=== PATIENT | female | born 1995 | race African-American/Black ===

== ENCOUNTER 2023-01-22 19:41 | Emergency (ER) | payer OTHER, SELFPAY ==
[2023-01-22 21:07] VITALS: BP 147/104; PULSE 83; RESP 20; TEMP 36.5; O2SAT 98; BMI 34.0
[2023-01-22 22:04] LABS: MANUAL DIFF FLAG NO
[2023-01-22 22:06] LABS: Basophils Percent Auto 0.6 % (0-2); Eosinophils Absolute Auto 0.5 X10*3/uL (0.0-0.4); Eosinophils Percent Auto 9.1 % (0-4); Hemoglobin 11.4 g/dl (12.0-16.0); Lymphocytes Absolute Auto 0.9 X10*3/uL (1.2-4.9); Lymphocytes Percent Auto 17.5 % (20-40); Mean Corpuscular HGB Conc 33.5 g/dl (31.0-35.0); Mean Corpuscular Hemoglobin 29.8 pg (27.0-33.0); Mean Corpuscular Volume 88.8 fL (80.0-98.0); Mean Platelet Volume 9.1 fL (9.4-12.3); Monocytes Absolute Auto 0.7 X10*3/uL (0.1-1.2); Monocytes Percent Auto 14.9 % (2-11); Neutrophils Absolute Auto 2.9 x10*3/uL (2.0-8.3); Neutrophils Percent Auto 57.9 % (45-73); Platelet Count 280 X10*3/uL (160-400); Red Blood Count 3.83 X10*6/uL (4.20-5.50); Red Cell Distribution Width 13.7 % (11.0-16.0)
[2023-01-22 22:23] LABS: COVID-19 Test Negative (Negative); IDNOW Serial# 08D9AD1C; IDNOW Serial# BCCEAD1C; Influenza A Negative (Negative); Influenza B2 Negative (Negative)
[2023-01-22 22:31] LABS: Anion Gap 12 (12-20); Blood Urea Nitrogen 15 mg/dL (9-16); Calcium 8.9 mg/dL (8.4-10.2); Carbon Dioxide 25 mmol/L (22-29); Chloride 107 mmol/L (96-108); Estimated Glomerular Filt Rate > 60; Glucose Random 92 mg/dL (60-115); Potassium 3.6 mmol/L (3.3-5.1); Sodium 140 mmol/L (135-145)
--- NOTE | 2023-01-22 22:51 | ED.GENADULT ---
HPI - General Adult General Chief complaint: Abdominal Pain Stated complaint: Flu like symptoms Time Seen by Provider: 01/22/23 22:47 Source: patient Mode of arrival: ambulatory Limitations: no limitations History of Present Illness HPI narrative: Patient comes to the emergency room complaining of 3 days of nausea vomiting diarrhea, cough, congestion and sore throat. Patient denies fever chills, no shortness of breath, no chest pain, no abdominal pain or UTI symptoms. Related Data Allergies Allergy/AdvReac Type Severity Reaction Status Date / Time Seasonal Allergies Allergy Runny Nose Verified 01/22/23 22:44 Review of Systems Review of Systems: Constitutional : No Weight loss, No Fever, No Chills, No Night Sweats, No Fatigue, No Malaise ENT/Mouth : No Hearing loss, No Ear Pain, complaining of Nasal Congestion, No Sinus Pain, No Hoarseness, complaining of sore throat, No Rhinorrhea, No Swallowing Difficulty Eyes: No Eye Pain, No Swelling, No Redness, No Foreign Body, No Discharge, No Vision Changes Cardiovascular : No Chest Pain, No SOB, No Dyspnea on Exertion, No Orthopnea, No Edema, No Palpitations Respiratory : Complaining of Cough, No Sputum, No Wheezing, No Smoke Exposure, No Dyspnea Gastrointestinal : No Nausea, No Vomiting, No Diarrhea, No Constipation, No abdominal Pain, No Hematochezia, No Melena Genitourinary : no irregular bleeding, No Dysuria, No Urinary Frequency, No Hematuria, No Urinary Incontinence, No Urgency, No Flank Pain, No Urinary Flow Changes, No Hesitancy Musculoskeletal : No joint pain, No Myalgias, No Joint Swelling Skin : No Skin Lesions, No rash Neuro : No Weakness, No Numbness, No Paresthesias, No Loss of Consciousness, No Dizziness, No Headache Psych : No Anxiety/Panic, No Depression, No SI/HI/AH/VH, No Social Issues, Heme/Lymph: No Bruising, No Bleeding,No Lymphadenopathy Endocrine : No Polyuria, No Polydipsia, No Temperature Intolerance [facility] Past Medical History Medical History (Updated 01/22/23 @ 22:54 by Jeni Castro MD) Asthma Physical Exam ED Vital Signs: Vital Signs - 24 hr 01/22/23 21:07 Temperature 97.7 F Pulse Rate 83 Respiratory Rate 20 Blood Pressure 147/104 H Pulse Oximetry 98 Oxygen Delivery Method Room Air BMI result Body Mass Index 34.0 Const Other: Appearance: Alert. Oriented X3. No acute distress. Eyes: Pupils equal, round and reactive to light. ENT: Pharynx mildly erythematous, no abscess is visualized Neck: Normal inspection. Neck supple. No lymph nodes noted. No crepitus CVS: Normal heart rate and rhythm. Pulses normal. Normal S1 and S2 Respiratory: No respiratory distress. Breath sounds normal. No Wheezing. No rales Abdomen: Soft and nontender. No rigidity. No distention. Skin: Skin warm and dry. Normal skin color. Normal skin turgor. Extremities: No lower extremity edema. No Lacerations. No Rash Neuro: Oriented X 3. No motor deficit. No sensory deficit. Moving all extremities. No slurred speech. CN 2 through 12 grossly intact Psych: calm, cooperative, normal affect Medical Decision Making Medical Decision Making MDM Narrative: -I discussed the physical exam and labs with the patient, no acute abnormalities. Patient has mildly erythematous oropharynx, likely a viral syndrome. -patient was given 1 dose of dexamethasone p.o. and viscous lidocaine for comfort. Differential Diagnosis Differential Diagnoses: The differential diagnosis associated with the presentation includes (Gastroenteritis, viral syndrome, COVID, influenza) Lab Data 01/22/23 21:59 01/22/23 21:59 Labs: Lab Results 01/22/23 01/22/23 01/22/23 Range/Units 21:59 21:59 21:59 WBC 5.0 (4.8-10.8) X10*3/uL RBC 3.83 L (4.20-5.50) X10*6/uL Hgb 11.4 L (12.0-16.0) g/dl Hct 34.0 L (37.0-47.0) % MCV 88.8 (80.0-98.0) fL MCH 29.8 (27.0-33.0) pg MCHC 33.5 (31.0-35.0) g/dl RDW 13.7 (11.0-16.0) % Plt Count 280 (160-400) X10*3/uL MPV 9.1 L (9.4-12.3) fL Immature Gran % (Auto) 0.0 (0.0-0.4) % Neut % (Auto) 57.9 (45-73) % Lymph % (Auto) 17.5 L (20-40) % [place] % (Auto) 14.9 H (2-11) % Eos % (Auto) 9.1 H (0-4) % Baso % (Auto) 0.6 (0-2) % Lymph # (Auto) 0.9 L (1.2-4.9) X10*3/uL [place] # (Auto) 0.7 (0.1-1.2) X10*3/uL Eos # (Auto) 0.5 H (0.0-0.4) X10*3/uL Baso # (Auto) 0.0 (0.0-0.2) X10*3/uL Abs Immat Gran (auto) 0.00 (0.00-0.03) X10*3/uL Absolute Neuts (auto) 2.9 (2.0-8.3) x10*3/uL Absolute Nucleated RBC 0.000 (0.0-0.012) X10*3/uL Nucleated RBC % (auto) 0.0 (0.0-0.2) /100WBC Sodium (135-145) mmol/L Potassium (3.3-5.1) mmol/L Chloride (96-108) mmol/L Carbon Dioxide (22-29) mmol/L Anion Gap (12-20) BUN (9-16) mg/dL Creatinine (0.5-1.4) mg/dL Estim Creat Clear Calc Estimated GFR Random Glucose (60-115) mg/dL Calcium (8.4-10.2) mg/dL COVID-19 (SHASHI) Negative (Negative) COVID-19 Clin Com See Note Influenza Type A (KAITLYNN) Negative (Negative) Influenza Type B (KAITLYNN) Negative (Negative) Influenza A & B Note See Note 01/22/23 Range/Units 21:59 WBC (4.8-10.8) X10*3/uL RBC (4.20-5.50) X10*6/uL Hgb (12.0-16.0) g/dl Hct (37.0-47.0) % MCV (80.0-98.0) fL MCH (27.0-33.0) pg MCHC (31.0-35.0) g/dl RDW (11.0-16.0) % Plt Count (160-400) X10*3/uL MPV (9.4-12.3) fL Immature Gran % (Auto) (0.0-0.4) % Neut % (Auto) (45-73) % Lymph % (Auto) (20-40) % [place] % (Auto) (2-11) % Eos % (Auto) (0-4) % Baso % (Auto) (0-2) % Lymph # (Auto) (1.2-4.9) X10*3/uL [place] # (Auto) (0.1-1.2) X10*3/uL Eos # (Auto) (0.0-0.4) X10*3/uL Baso # (Auto) (0.0-0.2) X10*3/uL Abs Immat Gran (auto) (0.00-0.03) X10*3/uL Absolute Neuts (auto) (2.0-8.3) x10*3/uL Absolute Nucleated RBC (0.0-0.012) X10*3/uL Nucleated RBC % (auto) (0.0-0.2) /100WBC Sodium 140 (135-145) mmol/L Potassium 3.6 (3.3-5.1) mmol/L Chloride 107 (96-108) mmol/L Carbon Dioxide 25 (22-29) mmol/L Anion Gap 12 (12-20) BUN 15 (9-16) mg/dL Creatinine 0.67 (0.5-1.4) mg/dL Estim Creat Clear Calc 165.0 Estimated GFR > 60 Random Glucose 92 (60-115) mg/dL Calcium 8.9 (8.4-10.2) mg/dL COVID-19 (SHASHI) (Negative) COVID-19 Clin Com Influenza Type A (KAITLYNN) (Negative) Influenza Type B (KAITLYNN) (Negative) Influenza A & B Note Discharge Plan Discharge Clinical Impression: Acute viral syndrome Patient Disposition: Home, Self-Care Instructions: Viral Syndrome (ED) Additional Instructions: Please follow-up with your primary care physician tomorrow. If you have any worsening or new symptoms, please return to the emergency room or call 911 Stand Alone Forms: Work/School Release
--- NOTE | 2023-01-22 23:00 | PC.NURSE ---
pt c/o sore thrt, diarrhea, body aches, loss of sense of taste that began 3 days ago aox4 no apparent distress, resting quietly
[2023-01-22] MEDS: dexAMETHasone sod phosphate 4 MG/ML VIAL 6 MG IVPUSH (23:19)
[2023-01-22] MEDS: Lidocaine HCl Viscous 2 % 15 ML SOLUTION MUCOUS MEM (23:20)
[2023-01-22 23:22] VITALS: BP 151/93; PULSE 95; RESP 16; TEMP 37.2; O2SAT 98
== END 2023-01-22 23:28 | disposition home or self-care (01) ==
PROVIDERS: Physician Assistant; Emergency Provider Emergency Medicine
DX: B34.9 Viral infection, unspecified (principal); R11.2 Nausea with vomiting, unspecified; Z20.822 Contact with and (suspected) exposure to COVID-19
CPT/HCPCS: 36415; 80048; 85025; 87502; 87635; 99283; J1100

== ENCOUNTER 2023-01-25 23:26 | Emergency (ER) | payer OTHER, SELFPAY ==
[2023-01-26 00:44] VITALS: BP 130/94; PULSE 76; RESP 17; TEMP 36.4; O2SAT 98; BMI 31.3
[2023-01-26 01:06] LABS: Hematocrit 35.3 % (37.0-47.0); Mean Corpuscular Hemoglobin 29.5 pg (27.0-33.0); Mean Corpuscular Volume 86.7 fL (80.0-98.0); Mean Platelet Volume 9.2 fL (9.4-12.3); Platelet Count 315 X10*3/uL (160-400); Red Blood Count 4.07 X10*6/uL (4.20-5.50); Red Cell Distribution Width 13.5 % (11.0-16.0); White Blood Count 6.8 X10*3/uL (4.8-10.8)
[2023-01-26 01:08] LABS: Appearance Urine Cloudy; Color Urine Yellow; Glucose Urine UA Negative (Negative); Leukocyte Esterase Urine Moderate (2+) (Negative); Nitrite Urine Negative (Negative); PH 5.5 (5.0-9.0); Specific Gravity - Urine >= 1.030 (1.005-1.025); UMIC TRIGGER UACC YES; Urine Blood Trace (Negative); Urine Ketones Negative (Negative); Urine Protein Trace mg/dL (Neg-Trace)
[2023-01-26 01:13] LABS: Bacteria Urine 1+ (None Seen); Hyaline Casts Urine 0-2 /LPF (0-2); Squamous Epithelial Cell Urine >20 /HPF (0-2); UACC Culture Trigger YES
[2023-01-26 01:28] LABS: Alanine Aminotransferase 23 U/L (0-31); Alkaline Phosphatase 59 U/L (39-117); Anion Gap 11 (12-20); Aspartate Amino Transferase 26 U/L (5-31); Bilirubin Total 0.3 mg/dL (0.0-1.0); Blood Urea Nitrogen 16 mg/dL (9-16); Calcium 9.3 mg/dL (8.4-10.2); Carbon Dioxide 28 mmol/L (22-29); Chloride 107 mmol/L (96-108); Creatinine Clr Calc Pharmacy 146.2; Estimated Glomerular Filt Rate > 60; Glucose Random 100 mg/dL (60-115); Potassium 3.9 mmol/L (3.3-5.1); Sodium 142 mmol/L (135-145); Total Protein 6.8 g/dL (6.5-8.0)
[2023-01-26 04:16] VITALS: BP 128/87; PULSE 18; RESP 17; TEMP 36.2; O2SAT 98
--- NOTE | 2023-01-26 04:18 | ED_ITS ---
HPI - General Adult General Chief complaint: General Medical Stated complaint: Earache/Vomiting/Diarrhea Time Seen by Provider: 01/26/23 04:17 Source: patient Mode of arrival: ambulatory Limitations: no limitations History of Present Illness HPI narrative: Patient with multiple complaints for last 1 week feel congested earache body aches nausea vomiting and diarrhea was seen here on 01/22 COVID/flu was negative comes back as still patient feel nauseated no back pain no urinary symptoms Related Data Previous Rx's Medication Instructions Recorded cefuroxime axetil 250 mg tablet 250 mg PO BID 7 days #14 tabs 01/26/23 ondansetron 4 mg disintegrating 4 mg PO Q6-8H PRN nausea and 01/26/23 tablet vomiting #10 tabs Allergies Allergy/AdvReac Type Severity Reaction Status Date / Time Seasonal Allergies Allergy Runny Nose Verified 01/22/23 22:44 Review of Systems Review of Systems: Yes all other systems are reviewed and are negative PMFSH Past Medical History Medical History Asthma Social History Social History Smoked in Last 30 Days: No Use of substances other than those prescribed or required for medical reasons: No Advance Directives: No Advance Directives Information Provided: No Physical Exam ED Vital Signs: Vital Signs - 24 hr 01/26/23 00:44 01/26/23 04:16 Temperature 97.5 F 97.1 F Pulse Rate 76 18 L Respiratory Rate 17 17 Blood Pressure 130/94 H 128/87 Pulse Oximetry 98 98 Oxygen Delivery Method Room Air Room Air BMI result Body Mass Index 31.3 Appearance: Alert. Oriented X3. No acute distress. Eyes: No pallor or icterus ENT: Pharynx normal. Oral Mucosa moist tympanic membrane intact and normal Neck: Normal inspection. Neck supple. CVS: Normal heart rate and rhythm. Pulses normal. Respiratory: No respiratory distress. Equal air entry bilateral, no wheezing/rales/rhonchi Abdomen: Soft and nontender. Bowel sounds are present, Skin: Skin warm and dry. Normal skin color. Normal skin turgor. Extremities: No lower extremity edema. No calf tenderness Neuro: Oriented X 3. No motor deficit. Medications Administered Discontinued Medications Generic Name Dose Route Start Last Admin Trade Name Freq PRN Reason Stop Dose Admin Cefuroxime Axetil 500 mg 01/26/23 04:24 01/26/23 04:44 Cefuroxime Axetil 500 Mg Tablet PO 01/26/23 04:25 500 mg ONCE ONE Administration Ondansetron HCl 4 mg 01/26/23 04:24 01/26/23 04:44 Ondansetron Odt 4 Mg Tab.Rapdis TRANSLINGU 01/26/23 04:25 4 mg ONCE ONE Administration Medical Decision Making Medical Decision Making MDM Narrative: Patient with UTI with nausea vomiting discharge patient home on Ceftin and Zofran lab workup stable Lab Data [facility] Lab Attestation statement: I reviewed the patient's lab results. 01/26/23 00:57 01/26/23 00:57 Labs: Lab Results 01/26/23 01/26/23 01/26/23 Range/Units 00:57 00:57 00:57 WBC 6.8 (4.8-10.8) X10*3/uL RBC 4.07 L (4.20-5.50) X10*6/uL Hgb 12.0 (12.0-16.0) g/dl Hct 35.3 L (37.0-47.0) % MCV 86.7 (80.0-98.0) fL MCH 29.5 (27.0-33.0) pg MCHC 34.0 (31.0-35.0) g/dl RDW 13.5 (11.0-16.0) % Plt Count 315 (160-400) X10*3/uL MPV 9.2 L (9.4-12.3) fL Absolute Nucleated RBC 0.000 (0.0-0.012) X10*3/uL Nucleated RBC % (auto) 0.0 (0.0-0.2) /100WBC Sodium 142 (135-145) mmol/L Potassium 3.9 (3.3-5.1) mmol/L Chloride 107 (96-108) mmol/L Carbon Dioxide 28 (22-29) mmol/L Anion Gap 11 L (12-20) BUN 16 (9-16) mg/dL Creatinine 0.68 (0.5-1.4) mg/dL Estim Creat Clear Calc 146.2 Estimated GFR > 60 Random Glucose 100 (60-115) mg/dL Calcium 9.3 (8.4-10.2) mg/dL Total Bilirubin 0.3 (0.0-1.0) mg/dL AST 26 (5-31) U/L ALT 23 (0-31) U/L Alkaline Phosphatase 59 (39-117) U/L Total Protein 6.8 (6.5-8.0) g/dL Albumin 4.0 (3.5-5.0) g/dL Urine Color Yellow Urine Appearance Cloudy Urine pH 5.5 (5.0-9.0) Ur Specific [place] >= 1.030 H (1.005-1.025) Urine Protein Trace (Neg-Trace) mg/dL Urine Glucose (UA) Negative (Negative) mg/dL Urine Ketones Negative (Negative) mg/dL Urine Blood Trace H (Negative) Urine Nitrite Negative (Negative) Ur Leukocyte Esterase Moderate (2+) H (Negative) Urine RBC 3-5 H (0-2) /HPF Urine WBC 11-20 H (0-5) /HPF Ur Squamous Epith Cells >20 (0-2) /HPF Urine Bacteria 1+ (None Seen) Hyaline Casts 0-2 (0-2) /LPF Urine Test (NEGATIVE) 01/26/23 Range/Units 00:57 WBC (4.8-10.8) X10*3/uL RBC (4.20-5.50) X10*6/uL Hgb (12.0-16.0) g/dl Hct (37.0-47.0) % MCV (80.0-98.0) fL MCH (27.0-33.0) pg MCHC (31.0-35.0) g/dl RDW (11.0-16.0) % Plt Count (160-400) X10*3/uL MPV (9.4-12.3) fL Absolute Nucleated RBC (0.0-0.012) X10*3/uL Nucleated RBC % (auto) (0.0-0.2) /100WBC Sodium (135-145) mmol/L Potassium (3.3-5.1) mmol/L Chloride (96-108) mmol/L Carbon Dioxide (22-29) mmol/L Anion Gap (12-20) BUN (9-16) mg/dL Creatinine (0.5-1.4) mg/dL Estim Creat Clear Calc Estimated GFR Random Glucose (60-115) mg/dL Calcium (8.4-10.2) mg/dL Total Bilirubin (0.0-1.0) mg/dL AST (5-31) U/L ALT (0-31) U/L Alkaline Phosphatase (39-117) U/L Total Protein (6.5-8.0) g/dL Albumin (3.5-5.0) g/dL Urine Color Urine Appearance Urine pH (5.0-9.0) Ur Specific [place] (1.005-1.025) Urine Protein (Neg-Trace) mg/dL Urine Glucose (UA) (Negative) mg/dL Urine Ketones (Negative) mg/dL Urine Blood (Negative) Urine Nitrite (Negative) Ur Leukocyte Esterase (Negative) Urine RBC (0-2) /HPF Urine WBC (0-5) /HPF Ur Squamous Epith Cells (0-2) /HPF Urine Bacteria (None Seen) Hyaline Casts (0-2) /LPF Urine Test NEGATIVE (NEGATIVE) Discharge Plan Discharge Clinical Impression: UTI (urinary tract infection) Patient Disposition: Home, Self-Care Instructions: Urinary Tract Infection in Women (ED) Additional Instructions: Drink plenty of fluids Antibiotic as prescribed Medicine for nausea Follow-up with PCP if not better Prescriptions: New cefuroxime axetil 250 mg tablet 250 mg PO BID 7 Days Qty: 14 0RF ondansetron 4 mg tablet,disintegrating 4 mg PO Q6-8H PRN (Reason: nausea and vomiting) Qty: 10 0RF
[2023-01-26 04:28] LABS: UPreg QC Valid YES; Urine Pregnancy NEGATIVE (NEGATIVE)
[2023-01-26] MEDS: Ondansetron ODT 4 MG TAB.RAPDIS TRANSLINGU (04:44)
--- NOTE | 2023-01-26 04:55 | PC.NURSE ---
pt denies any sob or chest pain, medicated per Mar, Reviewed discharge instructions with pt, pt verbalized understanding.
== END 2023-01-26 05:04 | disposition home or self-care (01) ==
PROVIDERS: Emergency Provider Internal Medicine
DX: N39.0 Urinary tract infection, site not specified (principal); M79.10 Myalgia, unspecified site; H92.03 Otalgia, bilateral; Z79.899 Other long term (current) drug therapy
CPT/HCPCS: 36415; 80053; 81001; 81025; 85027; 87086; 99283; 99284

== ENCOUNTER 2023-03-16 12:41 | Emergency (ER) | payer OTHER, SELFPAY ==
--- NOTE | ~2023-03-16 | XR_ITS ---
EXAMINATION: XR KNEE, LEFT CLINICAL INFORMATION: Pain. Fall. COMPARISON: None available. TECHNIQUE: Four views of the left knee. FINDINGS: Bones and soft tissues are normal. No fracture or joint effusion. Alignment is anatomic. Joint spaces are well maintained. No abnormal soft tissue calcification. XR/XR knee LT 3V IMPRESSION: Normal left knee.
[2023-03-16 13:28] VITALS: BP 135/93; PULSE 75; RESP 16; TEMP 36.4; O2SAT 100; BMI 36.6
--- NOTE | 2023-03-16 13:29 | ED.GENADULT ---
HPI - General Adult General Chief complaint: Fall Stated complaint: work injury Time Seen by Provider: 03/16/23 14:24 Source: patient and RN notes reviewed Mode of arrival: ambulatory Limitations: no limitations History of Present Illness HPI narrative: This is a 27-year-old female presenting to the emergency department with complaints of left knee pain since today. 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 Patient reports that she has been able to partially bear weight on her left leg secondary to pain. She has a history of left knee problems in the past. She states that she was told that she would need surgery in her left knee due to a ligamentous tear however did not follow through with the surgery as she was too nervous about it. Patient denies any numbness, tingling, or weakness. Denies taking any medications at home to treat her current symptoms. Denies hitting her head or lost consciousness during this fall. No other complaints or concerns at this time. MD complaint: Left knee pain Onset (ago): day(s) Location: lower extremity Radiation: non-radiation Quality: aching Pain Consistency: constant Relieving factors: none Exacerbating factors: none Associated symptoms: denies other symptoms Treatments prior to arrival: none Related Data Previous Rx's Medication Instructions Recorded cefuroxime axetil 250 mg tablet 250 mg PO BID 7 days #14 tabs 01/26/23 ondansetron 4 mg disintegrating 4 mg PO Q6-8H PRN nausea and 01/26/23 tablet vomiting #10 tabs ibuprofen 600 mg tablet 600 mg PO Q6H PRN pain #45 tabs 03/16/23 Allergies Allergy/AdvReac Type Severity Reaction Status Date / Time Seasonal Allergies Allergy Runny Nose Verified 03/16/23 13:31 Review of Systems Review of Systems: Constitutional: No Weight loss, No Fever, No Chills ENT/Mouth: No Ear Pain, No Nasal Congestion, No Sinus Pain, No Hoarseness, No sore throat, No Rhinorrhea, No Swallowing Difficulty Cardiovascular: No Chest Pain, No SOB Respiratory: No Cough, No Sputum, No Wheezing Gastrointestinal: No Nausea, No Vomiting, No Diarrhea, No Constipation, No Abdominal pain Genitourinary: No Dysuria, No Urinary Frequency, No Hematuria, No Urinary Incontinence/retention, No Urgency, No Flank Pain Musculoskeletal: No joint pain, No Myalgias, No Joint Swelling Skin: No Skin Lesions, No rash Neuro: No Weakness, No Numbness, No Paresthesias PMF Past Medical History Medical History Asthma Social History Social History Advance Directives: No Advance Directives Information Provided: Yes Physical Exam ED Vital Signs: Vital Signs - 24 hr 03/16/23 13:28 03/16/23 14:24 Temperature 97.5 F Pulse Rate 75 67 Respiratory Rate 16 16 Blood Pressure 135/93 H 103/77 Pulse Oximetry 100 Oxygen Delivery Method Room Air Room Air BMI result Body Mass Index 36.6 Const Other: General: Awake, alert, and oriented X3. No acute distress. HEENT: Normal inspection CVS: Normal heart rate and rhythm. Pulses normal. Respiratory: No respiratory distress Skin: Warm, dry, no rashes noted to exposed skin. Normal skin color. Normal skin turgor. Extremities: Left knee with tenderness to palpation along the patella, able to flex and extend the left knee without difficulty. Tenderness with varus strain. No calf tenderness. Neuro: Oriented X 3. No motor deficit. No sensory deficit. Course Course Course Narrative: RME- 27 year old female presents for evaluation of left knee pain after a slip and fall at work. X-ray ordeed Medical Decision Making Medical Decision Making MDM Narrative: 27-year-old female presenting to emergency department for evaluation of left knee pain after slip and fall at work. Vital signs stable, left knee x-ray obtained without any acute findings. Patient has good range of motion of the knee, distal sensation circulation intact. Patient's left knee placed in Michael wrap and advise to ice, elevate, and use Michael wrap as needed. Given orthopedic follow-up as needed. Patient understands and agrees with plan. Patient stable for discharge. Differential Diagnosis Differential Diagnoses: The differential diagnosis associated with the presentation includes Left knee contusion, patellar fracture, knee sprain, strain Radiology Impression Discussion of test interpretation with radiology: I have reviewed the radiologist's reading. Radiologist Impression: EXAMINATION: XR KNEE, LEFT CLINICAL INFORMATION: Pain. Fall.? COMPARISON: None available.? TECHNIQUE: Four views of the left knee. FINDINGS: Bones and soft tissues are normal. No fracture or joint effusion. Alignment is anatomic. Joint spaces are well maintained. No abnormal soft tissue calcification.? XR/XR knee LT 3V IMPRESSION: Normal left knee. ? Dictated By: Kourtney Gaines MD Signed By: <Electronically signed by Kourtney Gaines MD in OV> 03/16/23 1422 DD/ 1400 TD/TT:? Foreign Legal Consultant: ADEBAYO Discharge Plan Discharge Clinical Impression: Contusion of knee Patient Disposition: Home, Self-Care Instructions: Knee Pain (ED) Additional Instructions: Please rest, ice, use Michael wrap for your knee pain. Take ibuprofen as directed as needed for pain. There were no fractures seen on your x-rays done today. Please follow-up with orthopedics as they may need to follow you for further treatment evaluation. If any new or worsening symptoms occur please return for re-evaluation. Prescriptions: New ibuprofen 600 mg tablet 600 mg PO Q6H PRN (Reason: pain) Qty: 45 0RF No Action cefuroxime axetil 250 mg tablet 250 mg PO BID 7 Days Qty: 14 0RF ondansetron 4 mg tablet,disintegrating 4 mg PO Q6-8H PRN (Reason: nausea and vomiting) Qty: 10 0RF Referrals: [facility] [Provider Group] Stand Alone Forms: Work/School Release Interventions: ED Discharge Assessment Last Done: 03/16/23 15:40 Discharge Date/Time: 03/16/23 15:40
[2023-03-16 14:24] VITALS: BP 103/77; PULSE 67; RESP 16
== END 2023-03-16 15:40 | disposition home or self-care (01) ==
PROVIDERS: Emergency Provider Emergency Medicine
DX: S80.02XA Contusion of left knee, initial encounter (principal); W01.0XXA Fall on same level from slipping, tripping and stumbling without subsequent striking against object, initial encounter; Y93.9 Activity, unspecified; Y92.9 Unspecified place or not applicable; Y99.9 Unspecified external cause status
CPT/HCPCS: 73562; 99283

== ENCOUNTER 2023-03-28 16:21 | Emergency (ER) | payer MEDICAID, SELFPAY ==
[2023-03-28 16:44] VITALS: BP 130/85; PULSE 96; RESP 16; TEMP 36; O2SAT 99; BMI 36.6
--- NOTE | 2023-03-28 16:47 | ED.GENADULT ---
HPI - General Adult General Chief complaint: Extremity Injury, Lower Stated complaint: fall/right knee and leg injury Time Seen by Provider: 03/28/23 22:14 Source: patient Mode of arrival: ambulatory Limitations: no limitations History of Present Illness HPI narrative: 27-year-old female came in for evaluation of right knee/right ankle pain patient is fell down twisting her right knee heard a pop in the right knee, patient unable to straighten her right knee walk with limping, no deformity, slight swelling of the right knee and right ankle. No head or neck pain or injury. Denies CP, SOB, abdominal pain. No history of previous right knee injury. Related Data Previous Rx's Medication Instructions Recorded cefuroxime axetil 250 mg tablet 250 mg PO BID 7 days #14 tabs 01/26/23 ondansetron 4 mg disintegrating 4 mg PO Q6-8H PRN nausea and 01/26/23 tablet vomiting #10 tabs ibuprofen 600 mg tablet 600 mg PO Q6H PRN pain #45 tabs 03/16/23 ibuprofen 800 mg tablet 800 mg PO Q8H PRN pain #20 tabs 03/28/23 Allergies Allergy/AdvReac Type Severity Reaction Status Date / Time Seasonal Allergies Allergy Runny Nose Verified 03/28/23 16:44 Review of Systems Review of Systems: All other systems are reviewed and are negative Constitutional: Reports as per HPI and Reports no additional constitutional complaints Eyes: Reports as per HPI and Reports no additional eye complaints Reports system reviewed and no additional complaints, except as documented Cardiovascular: Reports as per HPI and Reports no additional cardiovascular complaints Respiratory: Reports as per HPI and Reports no additional respiratory complaints Gastrointestinal: Reports as per HPI and Reports no additional gastrointestinal complaints Genitourinary: Reports no additional female genitourinary complaints Musculoskeletal: Reports no additional musculoskeletal complaints Skin/Breast: Reports system reviewed and no additional complaints, except as docu Psychiatric: Reports no additional psychiatric complaints Endocrine: Reports no additional endocrine complaints Hematologic/Lymphatic: Reports no additional hematologic/lymphatic complaints Allergic/Immunologic: Reports no additional allergic/immunologic complaints Reports system reviewed and no additional complaints, except as documented and Reports Abnormal speech present [facility] Past Medical History Medical History Asthma Social History Social History Advance Directives: No Advance Directives Information Provided: No Physical Exam ED Vital Signs: Vital Signs - 24 hr 03/28/23 16:44 Temperature 96.8 F Pulse Rate 96 Respiratory Rate 16 Blood Pressure 130/85 Pulse Oximetry 99 Oxygen Delivery Method Room Air BMI result Body Mass Index 36.6 Vital signs have been reviewed as appeared to be correct. Blood pressure normal. Heart rate normal. Respiration rate normal. Temperature normal. Oxygen saturation normal. Appearance: Alert. Oriented X3. No acute distress. Head: Normal external exam. Normocephalic. Atraumatic. No Pritchard signs noted. No raccoon eyes noted Eyes: PERRLA. EOMI. Conjunctiva and sclera normal. Eyelids normal. ENT: TM's Normal. Pharynx normal. Uvula midline. Moist mucous membranes. No trismus noted. No drooling noted. No muffled voice noted. Neck: Normal inspection. Neck supple. FROM. No adenopathy. Thyroid Normal. No meningeal signs. No neck mass noted. CVS: Normal heart rate and rhythm. Heart sound normal. No murmurs noted. Pulses normal throughout. Respiratory: No respiratory distress. Painless inspiration. Breath sounds normal. No wheezes/rales/rhonchi noted. Chest nontender. No accessory muscle usage noted or decreased air movement noted. Abdomen: Soft and nontender. Bowel sounds normal in all 4 quadrants. No distention noted. No organomegaly noted. No visible injury noted. Back: No CVA tenderness. Full range of motion noted. Skin: Skin warm and dry. Normal skin color. Normal skin turgor. No rashes/lesions/lacerations noted. Extremities: Right knee slight swelling, no deformity, full range of passive motion, neurovascularly intact. Neuro: Oriented X 3. Cranial nerve exam: II-XII are grossly intact No motor deficit. No sensory deficit. Reflexes normal. Course Course Course Narrative: RME: 27 [place]ofl[place] prieto presents to the ED for right knee and leg pain after falling. patient states hearing her right knee pain popping sound. patient denies hitting head or loss of concsisoiness. xrays ordered Reevaluation(s) Reevaluation #1: 27-year-old female with right knee contusion after twisting it, no fracture on the x-ray, neurovascularly intact, recommended to apply ice and knee immobilizer and follow-up with orthopedic Time: 22:43 Medications Administered Discontinued Medications Generic Name Dose Route Start Last Admin Trade Name Freq PRN Reason Stop Dose Admin Ibuprofen 800 mg 03/28/23 22:39 03/28/23 22:44 Ibuprofen 800 Mg Tablet PO 03/28/23 22:40 800 mg ONCE ONE Administration Medical Decision Making Differential Diagnosis Differential Diagnoses: The differential diagnosis associated with the presentation includes (Knee fracture, ligamentous injury, leg fracture, soft tissue contusion.) Admission/Observation Consideration of admission/observation: Escalation of care including admission/observation considered Lab Data MDM Lab Attestation statement: I reviewed the patient's lab results. Independent Interpretation I performed an independent interpretation of an: Plain X-Ray (Right knee/right leg: No acute fracture dislocation.) Radiology Impression Discussion of test interpretation with radiology: I have reviewed the radiologist's reading. Discharge Plan Discharge Clinical Impression: Ankle sprain and strain, Contusion of knee, right Patient Disposition: Home, Self-Care Instructions: Contusion in Adults (ED) Prescriptions: New ibuprofen 800 mg tablet 800 mg PO Q8H PRN (Reason: pain) Qty: 20 0RF No Action cefuroxime axetil 250 mg tablet 250 mg PO BID 7 Days Qty: 14 0RF ondansetron 4 mg tablet,disintegrating 4 mg PO Q6-8H PRN (Reason: nausea and vomiting) Qty: 10 0RF ibuprofen 600 mg tablet 600 mg PO Q6H PRN (Reason: pain) Qty: 45 0RF Referrals: Fareed Humphries MD [Physician] - Stand Alone Forms: Work/School Release Interventions: ED Discharge Assessment Last Done: 03/28/23 23:07 Discharge Date/Time: 03/28/23 23:08
== END 2023-03-28 23:08 | disposition home or self-care (01) ==
PROVIDERS: Emergency Provider Emergency Medicine
DX: S93.401A Sprain of unspecified ligament of right ankle, initial encounter (principal); S96.911A Strain of unspecified muscle and tendon at ankle and foot level, right foot, initial encounter; X58.XXXA Exposure to other specified factors, initial encounter; Y93.89 Activity, other specified; Y92.9 Unspecified place or not applicable; Y99.9 Unspecified external cause status; M25.561 Pain in right knee
CPT/HCPCS: 73564; 73590; 99283

== ENCOUNTER 2023-05-11 08:01 | Outpatient (AMB) | payer MEDICAID, SELFPAY ==
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
[2023-05-11 08:39] VITALS: BMI 36.6
== END 2023-05-11 09:19 | disposition home or self-care (01) ==
PROVIDERS: Visit Provider Physician Assistant
DX: M94.261 Chondromalacia, right knee (principal); S93.401A Sprain of unspecified ligament of right ankle, initial encounter
CPT/HCPCS: 99203

== ENCOUNTER → 2023-05-11 08:01 | Outpatient (BNVA) | payer OTHER, SELFPAY | PROVIDERS: Visit Provider Physician Assistant | DX: S93.401A Sprain of unspecified ligament of right ankle, initial encounter (principal); M94.261 Chondromalacia, right knee | CPT/HCPCS: 99202; 99203 ==

== ENCOUNTER 2023-06-07 17:46 | Emergency (ER) | payer OTHER, SELFPAY ==
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
[2023-06-07 18:36] VITALS: BP 148/96; PULSE 78; RESP 20; O2SAT 99; BMI 35.4
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
== END 2023-06-07 21:45 | disposition home or self-care (01) ==
PROVIDERS: Emergency Provider Emergency Medicine
DX: M25.561 Pain in right knee (principal); R26.2 Difficulty in walking, not elsewhere classified
CPT/HCPCS: 73564; 99281; 99283

== ENCOUNTER 2023-06-10 20:07 | Emergency (ER) | payer OTHER, SELFPAY ==
[2023-06-10 20:56] VITALS: BP 147/93; PULSE 82; RESP 18; TEMP 36; O2SAT 97; BMI 35.4
== END 2023-06-10 23:01 | disposition left against medical advice (07) ==
LOC: HO.ED 22:52
PROVIDERS: Emergency Provider Emergency Medicine
DX: M25.561 Pain in right knee (principal)
CPT/HCPCS: 99281

== ENCOUNTER 2024-07-10 11:29 | Emergency (ER) | payer OTHER, SELFPAY ==
--- NOTE | ~2024-07-10 | XR_ITS ---
EXAMINATION: XR LUMBAR SPINE XR SACRUM AND COCCYX CLINICAL INFORMATION: Pain. COMPARISON: None available. TECHNIQUE: 3 view lumbar spine and 3 view sacrum and coccyx. FINDINGS: LUMBAR SPINE: There are 5 nonrib-bearing lumbar vertebra. No acute fracture, spondylolisthesis, or spondylolysis is identified. Pedicles appear intact. There is mild narrowing of the L5-S1 disc space. There is some mild sclerosis of the right sacroiliac joint. SACRUM AND COCCYX: No acute fracture or dislocation is evident. Hip joint spaces appear maintained. No diastasis of the pelvis identified. There is some mild sclerosis seen involving the right sacroiliac joint involving the sacral and iliac surfaces. No definite effusion or widening of sacroiliac joint is noted. XR/XR sacrum coccyx min 2V IMPRESSION: Mild degenerative change L5-S1 without significant bony abnormality appreciated. No evidence of acute fracture of the sacrum or coccyx. Some degenerative sclerosis involving the right sacroiliac joint. Electronically signed by: Edmar Dozier MD 07/10/2024 01:49 PM EDT
--- NOTE | ~2024-07-10 | XR_ITS ---
EXAMINATION: XR LUMBAR SPINE XR SACRUM AND COCCYX CLINICAL INFORMATION: Pain. COMPARISON: None available. TECHNIQUE: 3 view lumbar spine and 3 view sacrum and coccyx. FINDINGS: LUMBAR SPINE: There are 5 nonrib-bearing lumbar vertebra. No acute fracture, spondylolisthesis, or spondylolysis is identified. Pedicles appear intact. There is mild narrowing of the L5-S1 disc space. There is some mild sclerosis of the right sacroiliac joint. SACRUM AND COCCYX: No acute fracture or dislocation is evident. Hip joint spaces appear maintained. No diastasis of the pelvis identified. There is some mild sclerosis seen involving the right sacroiliac joint involving the sacral and iliac surfaces. No definite effusion or widening of sacroiliac joint is noted. XR/XR lumbar spine 2-3V IMPRESSION: Mild degenerative change L5-S1 without significant bony abnormality appreciated. No evidence of acute fracture of the sacrum or coccyx. Some degenerative sclerosis involving the right sacroiliac joint. Electronically signed by: Edmar Dozier MD 07/10/2024 01:49 PM EDT
[2024-07-10 11:48] VITALS: BP 148/93; PULSE 98; RESP 20; TEMP 37.2; O2SAT 98; BMI 31.9
--- NOTE | 2024-07-10 11:50 | ED.BACK ---
HPI - Back Pain/Injury General Chief Complaint: Back Pain/Injury Stated Complaint: Back pain Time Seen by Provider: 07/10/24 13:59 Source: patient Mode of arrival: ambulatory Limitations: no limitations History of Present Illness ED Provider: Blane Mejia PA-C HPI Narrative: 28 yo female with history of obesity, chronic low back pain presents to the ER for evaluation of acutely worsening low back pain for the last 3 days after doing a lot of heavy lifting at work. 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 she reports the pain is in the middle of her back and radiates to her upper legs bilaterally. worse with prolonged standing and movement. no numbness, tingling or weakness in the legs. no trouble walking. has not taken any medications for the pain. MD elicited complaint: back pain and back injury Pertinent past history: recent trauma Onset (ago): day(s) (3) Timing: constant Severity: severe Similar Symptoms Previously: Yes Quality: aching Location: lumbar spine Radiation: buttocks, left upper leg and right upper leg Exacerbating factors: movement Relieving factors: none Context: while lifting and turning/twisting Associated symptoms: denies other symptoms Work related injury: Yes Related Data Previous Rx's ?Medication ?Instructions ?Recorded cefuroxime axetil 250 mg tablet 250 mg PO BID 7 days #14 tabs 01/26/23 ondansetron 4 mg disintegrating 4 mg PO Q6-8H PRN nausea and 01/26/23 tablet vomiting #10 tabs ibuprofen 600 mg tablet 600 mg PO Q6H PRN pain #45 tabs 03/16/23 ibuprofen 800 mg tablet 800 mg PO Q8H PRN pain #20 tabs 03/28/23 diclofenac sodium 1 % topical gel 4 g topical QID 30 days #100 grams 05/11/23 cyclobenzaprine 10 mg tablet 10 mg PO TID PRN muscle spasm #10 07/10/24 tabs ibuprofen 600 mg tablet 600 mg PO Q8H PRN pain #14 tabs 07/10/24 lidocaine 5 % topical patch 1 patch topical DAILY #15 ea 07/10/24 Allergies Allergy/AdvReac Type Severity Reaction Status Date / Time Seasonal Allergies Allergy Runny Nose Verified 07/10/24 11:52 Review of Systems Review of Systems: Yes all other systems are reviewed and are negative PMFSH Past Medical History Medical History Asthma Social History Social History Advance Directives: No Advance Directives Information Provided: No Do you have a plan to hurt others: No Plan Current occupational status: unemployed 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 Oriented X3. No acute distress. HEENT: normal inspection CVS: Normal heart rate and rhythm. Pulses normal. Respiratory: No respiratory distress. Skin: Skin warm and dry. Normal skin color. Normal skin turgor. No rashes. Back: normal inspection. tenderness of the lower lumbar area. no CVA tenderness. negative straight leg raise test bilaterally. Extremities: normal inspection x4, no joint swelling. steady gait. Neuro: Oriented X 3. No motor deficit. No sensory deficit. DTRs intact Course Course Course Narrative: This is an RME: Additional HPI, ROS, PE not included below will be deferred to primary provider. RME assessment and note performed by: Carina Johnson PA-C This is a 12-tsxt-ygi-female, with a hx of asthma, who presents to the ER with complaints of back pain. 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 Reporting pain in her back. Reports pain low mid back pain. No radiating pain. No saddle anethesia. No urinary or bowel incontinence or retention. No hx of IVDA. No chance of preg. TTP overlying mid lum spine, and lower back musculature. Plan: xrays Medications Administered Discontinued Medications Generic Name Dose Route Start Last Admin Trade Name Freq PRN Reason Stop Dose Admin Acetaminophen 975 mg 07/10/24 14:07 07/10/24 14:50 Acetaminophen 325 Mg Tablet PO 07/10/24 14:08 975 mg ONCE ONE Administration Ketorolac Tromethamine 30 mg 07/10/24 14:07 07/10/24 14:50 Ketorolac Tromethamine 30 Mg/Ml Vial IM 07/10/24 14:08 30 mg ONCE ONE Administration Lidocaine 1 patch 07/10/24 14:07 07/10/24 14:50 Lidocaine 4 % Patch Adh..Patch TRANSDERMA 07/10/24 14:08 1 patch ONCE ONE Administration Protocol Medical Decision Making Medical Decision Making MDM Narrative: 28 yo female with obesity here with LBP, acute on chronic after heavy lifting. no red flag symptoms of low back pain. neurologically intact. XR reviewed - mild degenerative changes at L5-S1. no acute fractures most likely muscular strain/spasm, will treat accordingly. stable for d/c home. encouraged outpatient follow up with PCP and activity modifications Differential Diagnosis Differential Diagnoses: The differential diagnosis associated with the presentation includes Inflammatory disorders, malignancy, trauma, osteoporosis, nerve root compression, radiculopathy, plexopathy, degenerative disc disease, disc herniation, spinal stenosis, sacroiliac joint dysfunction, facet joint injury, and less likely infection?like abscess or diskitis Independent Interpretation I performed an independent interpretation of an: Plain X-Ray Interpretation: no acute fx lumbar spine, alignment normal Radiology Impression Discussion of test interpretation with radiology: I have reviewed the radiologist's reading. External Record Review External record reviewed: Prior outpatient radiology Prescription Management I considered prescription management with: Pain Medication Chronic Conditions Patient?s care impacted by: Other (obesity) Critical Care Time Critical Care Time Critical Care Time: No Discharge Plan Discharge Clinical Impression: Strain of lumbar region Patient Disposition: Home, Self-Care Instructions: Low Back Strain (ED), Lower Back Exercises (ED) Additional Instructions: Your pain is most likely due to muscle strain and spasm. Limit bending, lifting or twisting. Use ice several times per day for 20 minutes at a time for the next 48 hours and then change to heat. Take medications as prescribed to help with pain and discomfort. Follow up with your Primary Care Doctor this week. You may benefit from physical therapy. Try the low back stretches 2 times per day for the next 2 weeks. If your pain worsens, if you develop new numbness, tingling, weakness, loss of function or incontinence call 911 or come back to the ER right away for evaluation. Prescriptions: New cyclobenzaprine 10 mg tablet 10 mg PO TID PRN (Reason: muscle spasm) Qty: 10 0RF ibuprofen 600 mg tablet 600 mg PO Q8H PRN (Reason: pain) Qty: 14 0RF lidocaine 5 % adhesive patch,medicated 1 patch topical DAILY Qty: 15 0RF Rx Instructions: leave on most painful area for up to 12 hrs No Action cefuroxime axetil 250 mg tablet 250 mg PO BID 7 Days Qty: 14 0RF ondansetron 4 mg tablet,disintegrating 4 mg PO Q6-8H PRN (Reason: nausea and vomiting) Qty: 10 0RF ibuprofen 600 mg tablet 600 mg PO Q6H PRN (Reason: pain) Qty: 45 0RF ibuprofen 800 mg tablet 800 mg PO Q8H PRN (Reason: pain) Qty: 20 0RF diclofenac sodium 1 % gel 4 g topical QID 30 Days Qty: 100 6RF Rx Instructions: apply 4grams to affected area four times a day as needed Stand Alone Forms: Work/School Release Interventions: ED Discharge Assessment Last Done: 07/10/24 15:04 Discharge Date/Time: 07/10/24 15:05 Print Language: Korean
[2024-07-10 14:19] VITALS: BP 141/90; PULSE 84; RESP 18; TEMP 36.7; O2SAT 99
--- NOTE | 2024-07-10 14:20 | PC.NURSE ---
patient a&ox3, ambulatory with steady gait, pt c/o low mid back pain, took tylenol at home without relieve, vss, awaiting provider, will continue plan of care
[2024-07-10] MEDS: Acetaminophen 325 MG TABLET 975 MG PO (14:50)
[2024-07-10] MEDS: Ketorolac Tromethamine 30 MG/ML VIAL IM (14:50)
[2024-07-10] MEDS: Lidocaine 4 % Patch ADH..PATCH 1 PATCH TRANSDERMA (14:50)
--- NOTE | 2024-07-10 14:55 | PC.NURSE ---
pt medicated for 10/10 lower back pain
[2024-07-10 15:04] VITALS: BP 141/90; PULSE 84; RESP 18; TEMP 36.7; O2SAT 99
== END 2024-07-10 15:05 | disposition home or self-care (01) ==
PROVIDERS: Emergency Provider Emergency Medicine
DX: S39.012A Strain of muscle, fascia and tendon of lower back, initial encounter (principal); M53.3 Sacrococcygeal disorders, not elsewhere classified; X50.0XXA Overexertion from strenuous movement or load, initial encounter; Y93.89 Activity, other specified; Y92.89 Other specified places as the place of occurrence of the external cause; Y99.0 Civilian activity done for income or pay
CPT/HCPCS: 72100; 72220; 96372; 99284; J1885

== ENCOUNTER 2024-08-07 12:19 | Emergency (ER) | payer OTHER, SELFPAY ==
[2024-08-07 12:36] VITALS: BP 151/107; PULSE 109; RESP 20; TEMP 37; O2SAT 97; BMI 41.5
--- NOTE | 2024-08-07 12:40 | ED.GENADULT ---
HPI - General Adult General Chief complaint: Abdominal Pain Stated complaint: Pelvic pain Source: patient Mode of arrival: ambulatory Limitations: no limitations History of Present Illness ED Provider: Kate Smith PA-C HPI narrative: Patient is a 28 year old assigned female at with no reported medical history presenting to the emergency department today with pelvic pain. Patient states that over the last 3 days she has been having pelvic pain and burning with urination. Patient denies any dizziness, lightheadedness, nausea, vomiting, fever, chills, blurry vision, double vision, loss of vision, chest pain, difficulty breathing, shortness of breath, back pain, night sweats, increased urinary frequency, increased urinary urgency, blood in her urine or stool, syncope or a near syncopal episode, recent trauma or falls, bowel incontinence, bladder incontinence, or any other complaints at this time. Onset (ago): day(s) (3) Relieving factors: none Exacerbating factors: none Associated symptoms: denies other symptoms Treatments prior to arrival: none Related Data Previous Rx's ?Medication ?Instructions ?Recorded cefuroxime axetil 250 mg tablet 250 mg PO BID 7 days #14 tabs 01/26/23 ondansetron 4 mg disintegrating 4 mg PO Q6-8H PRN nausea and 01/26/23 tablet vomiting #10 tabs ibuprofen 600 mg tablet 600 mg PO Q6H PRN pain #45 tabs 03/16/23 ibuprofen 800 mg tablet 800 mg PO Q8H PRN pain #20 tabs 03/28/23 diclofenac sodium 1 % topical gel 4 g topical QID 30 days #100 grams 05/11/23 cyclobenzaprine 10 mg tablet 10 mg PO TID PRN muscle spasm #10 07/10/24 tabs ibuprofen 600 mg tablet 600 mg PO Q8H PRN pain #14 tabs 07/10/24 lidocaine 5 % topical patch 1 patch topical DAILY #15 ea 07/10/24 Allergies Allergy/AdvReac Type Severity Reaction Status Date / Time Seasonal Allergies Allergy Runny Nose Verified 08/08/24 07:26 Review of Systems Constitutional: Constitutional: Reports no additional constitutional complaints, Denies chills, Denies fever(s) and Denies night sweats Eyes: Eyes: Reports no additional eye complaints, Denies blurry vision, Denies change in vision, Denies diplopia, Denies eye discharge, Denies loss of vision and Denies eye pain ENT: Denies dizziness Cardiovascular: Cardiovascular: Reports no additional cardiovascular complaints, Denies chest pain, Denies lightheadedness, Denies Loss of Consciousness and Denies dyspnea Respiratory: Respiratory: Reports no additional respiratory complaints and Denies dyspnea Gastrointestinal: Gastrointestinal: Reports no additional gastrointestinal complaints, Reports abdominal pain, Denies melena, Denies hematochezia, Denies change in bowel habits and Denies change in stool character Genitourinary: Genitourinary: Denies hematuria, Denies urinary frequency, Reports dysuria, Denies urinary incontinence, Denies urinary hesitancy and Denies urinary urgency Musculoskeletal: Musculoskeletal: Reports no additional musculoskeletal complaints, Denies numbness and Denies tingling Neurologic: Denies dizziness, Denies loss of vision, Denies numbness and Denies tingling Psychiatric: Psychiatric: Reports no additional psychiatric complaints Endocrine: Endocrine: Reports no additional endocrine complaints Hematologic/Lymphatic: Hematologic/Lymphatic: Reports no additional hematologic/lymphatic complaints Allergic/Immunologic: Allergic/Immunologic: Reports no additional allergic/immunologic complaints PMFSH Past Medical History Attestation statement: The following information was validated with the patient. 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 Physical Exam ED Vital Signs: Vital Signs - 24 hr 08/07/24 12:36 Temperature 98.6 F Pulse Rate 109 H Respiratory Rate 20 Blood Pressure 151/107 H Pulse Oximetry 97 Oxygen Delivery Method Room Air BMI result Body Mass Index 41.5 Const General: cooperative, no acute distress, alert and awake Nutritional Appearance: well nourished Orientation/consciousness: patient oriented x3 Limitations: no limitations HENMT Head: Yes normal to inspection and Yes atraumatic Ears: hearing grossly normal bilaterally and external ears normal General nose exam: Normal external nose present, no nasal discharge noted and no epistaxis Face and sinus: Yes normal facial exam, No abrasion and No laceration Mouth: Normal oral and palatal mucosa present, no drooling and no muffled voice Eyes General: appearance normal, both eyes and all related structures Periorbital: periorbital findings normal Eyelids: Yes eyelids normal Conjunctivae: conjunctivae normal Pupils: Equal, round and reactive pupils present EOM: EOMs intact bilaterally Neck Neck: Yes normal visual inspection, Yes full ROM and Yes no lymphadenopathy Chest Chest palpation & inspection: normal inspection of the chest Resp Effort & Inspection: normal respiratory effort and able to speak in complete sentences GI Inspection: Yes normal to inspection Neuro General: patient oriented x3 and moves all extremities Cranial nerves: Yes Equal, round and reactive pupils present Cognition (Neuro): normal cognition Extrem General: Yes normal to inspection, Yes full ROM and Yes capillary refill normal Psych Appearance: grossly normal Mental Status: mental status grossly normal Affect: normal affect Attitude: cooperative Thought process: Normal thought process present Thought content: Normal thought content present Insight: Good insight present (Psych) Course Course Course Narrative: RME performed by Kate Smith PA-C. Patient is a 28 year old assigned female at presenting to the emergency department with pelvic pain. Detailed physical exam and review of systems are deferred to the meter tester primary. Labs ordered. Patient placed back in the waiting room pending room availability and results. Medical Decision Making Medical Decision Making [facility] Narrative: Patient is a 28 year old assigned female at with no reported medical history presenting to the emergency department today with pelvic pain and dysuria. Patient's limited physical exam performed in triage was unremarkable. Patient's blood work was unremarkable. Patient left the department without completing treatment. Patient left the department before myself or any of the other emergency department clinicians could explain to or review with the patient; physical exam findings, test results, need or lack there of for additional testing, need or lack there of for a procedure to be performed, need or lack there of for hospital admission / transfer, need or lack there of for prescription medication, treatment options, or a treatment plan. Differential Diagnosis Differential Diagnoses: The differential diagnosis associated with the presentation includes Pelvic pain UTI Admission/Observation Consideration of admission/observation: Escalation of care including admission/observation considered Patient would have been admitted to the hospital had she completed her work up and it had any findings where hospital admission was appropriate, her clinical presentation warranted hospital admission, had myself or any other emergency religion department chair had the ability to discuss need or lack there of for hospital admission, and the patient hadn't left the department without completing treatment. Lab Data [facility] Lab Attestation statement: I reviewed the patient's lab results. My interpretation of these results are in the [facility] Rationale portion of this note. 08/07/24 13:04 08/07/24 13:04 Labs: Lab Results 08/07/24 Range/Units 13:04 WBC 8.3 (4.8-10.8) X10*3/uL RBC 3.93 L (4.20-5.50) X10*6/uL Hgb 11.9 L (12.0-16.0) g/dl Hct 34.9 L (37.0-47.0) % MCV 88.8 (80.0-98.0) fL MCH 30.3 (27.0-33.0) pg MCHC 34.1 (31.0-35.0) g/dl RDW 12.5 (11.0-16.0) % Plt Count 271 (160-400) X10*3/uL MPV 9.1 L (9.4-12.3) fL Immature Gran % (Auto) 0.2 (0.0-0.4) % Neut % (Auto) 66.5 (45-73) % Lymph % (Auto) 23.6 (20-40) % [place] % (Auto) 8.0 (2-11) % Eos % (Auto) 1.3 (0-4) % Baso % (Auto) 0.4 (0-2) % Lymph # (Auto) 2.0 (1.2-4.9) X10*3/uL [place] # (Auto) 0.7 (0.1-1.2) X10*3/uL Eos # (Auto) 0.1 (0.0-0.4) X10*3/uL Baso # (Auto) 0.0 (0.0-0.2) X10*3/uL Abs Immat Gran (auto) 0.02 (0.00-0.03) X10*3/uL Absolute Neuts (auto) 5.5 (2.0-8.3) x10*3/uL Absolute Nucleated RBC 0.000 (0.0-0.012) X10*3/uL Nucleated RBC % (auto) 0.0 (0.0-0.2) /100WBC Sodium 141 (135-145) mmol/L Potassium 3.9 (3.3-5.1) mmol/L Chloride 106 (96-108) mmol/L Carbon Dioxide 25 (22-29) mmol/L Anion Gap 14 (12-20) BUN 13 (9-16) mg/dL Creatinine 0.65 (0.5-1.4) mg/dL Estim Creat Clear Calc 170.3 Estimated GFR > 60 Random Glucose 92 (60-115) mg/dL Calcium 9.6 (8.4-10.2) mg/dL Magnesium 2.0 (1.6-2.6) mg/dL Total Bilirubin 0.6 (0.0-1.0) mg/dL AST 33 H (5-31) U/L ALT 27 (0-31) U/L Alkaline Phosphatase 68 (39-117) U/L Total Protein 7.5 (6.5-8.0) g/dL Albumin 3.9 (3.5-5.0) g/dL Beta HCG, Quant < 2 mIU/mL Influenza Type A (PCR) NEGATIVE (Negative) Influenza Type B (PCR) NEGATIVE (Negative) RSV RNA Qual (PCR) NEGATIVE (Negative) SARS-CoV-2 RNA (RT-PCR) NEGATIVE (Negative) Discharge Plan Discharge Clinical Impression: Pelvic pain, Dysuria Patient Disposition: Left W/O Completing Treatment Prescriptions: No Action cefuroxime axetil 250 mg tablet 250 mg PO BID 7 Days Qty: 14 0RF ondansetron 4 mg tablet,disintegrating 4 mg PO Q6-8H PRN (Reason: nausea and vomiting) Qty: 10 0RF ibuprofen 600 mg tablet 600 mg PO Q6H PRN (Reason: pain) Qty: 45 0RF ibuprofen 800 mg tablet 800 mg PO Q8H PRN (Reason: pain) Qty: 20 0RF cyclobenzaprine 10 mg tablet 10 mg PO TID PRN (Reason: muscle spasm) Qty: 10 0RF ibuprofen 600 mg tablet 600 mg PO Q8H PRN (Reason: pain) Qty: 14 0RF lidocaine 5 % adhesive patch,medicated 1 patch topical DAILY Qty: 15 0RF Rx Instructions: leave on most painful area for up to 12 hrs diclofenac sodium 1 % gel 4 g topical QID 30 Days Qty: 100 6RF Rx Instructions: apply 4grams to affected area four times a day as needed Discharge Date/Time: 08/07/24 20:51
[2024-08-07 13:07] LABS: MANUAL DIFF FLAG NO
[2024-08-07 13:09] LABS: Basophils Percent Auto 0.4 % (0-2); Eosinophils Absolute Auto 0.1 X10*3/uL (0.0-0.4); Eosinophils Percent Auto 1.3 % (0-4); Hematocrit 34.9 % (37.0-47.0); Hemoglobin 11.9 g/dl (12.0-16.0); Imm Gran Abs Auto 0.02 X10*3/uL (0.00-0.03); Imm Gran Pct Auto 0.2 % (0.0-0.4); Lymphocytes Percent Auto 23.6 % (20-40); Mean Corpuscular HGB Conc 34.1 g/dl (31.0-35.0); Mean Corpuscular Hemoglobin 30.3 pg (27.0-33.0); Mean Corpuscular Volume 88.8 fL (80.0-98.0); Mean Platelet Volume 9.1 fL (9.4-12.3); Monocytes Absolute Auto 0.7 X10*3/uL (0.1-1.2); Neutrophils Absolute Auto 5.5 x10*3/uL (2.0-8.3); Neutrophils Percent Auto 66.5 % (45-73); Platelet Count 271 X10*3/uL (160-400); Red Blood Count 3.93 X10*6/uL (4.20-5.50); Red Cell Distribution Width 12.5 % (11.0-16.0); White Blood Count 8.3 X10*3/uL (4.8-10.8)
[2024-08-07 13:34] LABS: Alanine Aminotransferase 27 U/L (0-31); Albumin Level 3.9 g/dL (3.5-5.0); Alkaline Phosphatase 68 U/L (39-117); Anion Gap 14 (12-20); Aspartate Amino Transferase 33 U/L (5-31); Bilirubin Total 0.6 mg/dL (0.0-1.0); Blood Urea Nitrogen 13 mg/dL (9-16); Calcium 9.6 mg/dL (8.4-10.2); Carbon Dioxide 25 mmol/L (22-29); Chloride 106 mmol/L (96-108); Creatinine Clr Calc Pharmacy 170.3; Estimated Glomerular Filt Rate > 60; Glucose Random 92 mg/dL (60-115); Potassium 3.9 mmol/L (3.3-5.1); Sodium 141 mmol/L (135-145); Total Protein 7.5 g/dL (6.5-8.0)
[2024-08-07 13:36] LABS: HCG Quantitative < 2 mIU/mL
[2024-08-07 13:57] LABS: Influenza A PCR NEGATIVE (Negative); Influenza B PCR NEGATIVE (Negative); Resp Syncy Virus RNA Qual PCR NEGATIVE (Negative); SARS COV2 PCR INHOUSE NEGATIVE (Negative)
--- NOTE | 2024-08-07 20:51 | PC.NURSE ---
Pt no answer when called for reassessment.
== END 2024-08-07 20:51 | disposition left against medical advice (07) ==
PROVIDERS: Physician Assistant Medical; Emergency Provider Emergency Medicine
DX: R10.2 Pelvic and perineal pain (principal); R30.0 Dysuria; Z03.818 Encounter for observation for suspected exposure to other biological agents ruled out; Z79.899 Other long term (current) drug therapy
CPT/HCPCS: 0241U; 80053; 83735; 84702; 85025; 99281; 99283

== ENCOUNTER 2024-08-08 07:22 | Emergency (ER) | payer MEDICAID, SELFPAY ==
[2024-08-08 07:24] VITALS: BP 124/78; PULSE 101; RESP 18; TEMP 36.6; O2SAT 94; BMI 45.1
--- NOTE | 2024-08-08 18:09 | PC.NURSE ---
no answer at 1800 roll call.
== END 2024-08-08 18:15 | disposition left against medical advice (07) ==
LOC: HO.ED 18:14
PROVIDERS: Emergency Provider Emergency Medicine
DX: R10.9 Unspecified abdominal pain (principal); R10.2 Pelvic and perineal pain; R11.0 Nausea; Z53.21 Procedure and treatment not carried out due to patient leaving prior to being seen by health care provider
CPT/HCPCS: 99281

== ENCOUNTER 2024-10-11 04:29 | Emergency (ER) | payer OTHER, SELFPAY ==
--- NOTE | ~2024-10-11 | XR_ITS ---
CLINICAL HISTORY: pain after injury, swelling 4 view left knee Comparison: CR/SR - XR KNEE LT 3V - 03/16/23 13:59 EDT Findings: Bones intact. No dislocations. No significant loss of joint space, osteophytes, or erosions. Possible small joint effusion. No radiopaque foreign body. IMPRESSION: 1. No acute fracture identified. Possible small joint effusion. This document has been electronically signed by: Sally Newton MD on 10/11/2024 05:23:08
[2024-10-11 04:30] VITALS: BP 132/93; PULSE 87; RESP 18; TEMP 36.6; O2SAT 99; BMI 32.8
--- NOTE | 2024-10-11 05:12 | ED.LOWEXIN ---
HPI - Extremity Injury (Lower) General Chief Complaint: Extremity Injury, Lower Stated Complaint: left knee swollen Time Seen by Provider: 10/11/24 04:55 Source: patient Mode of arrival: ambulatory Limitations: no limitations History of Present Illness ED Provider: Dr. Kolton Salamanca HPI Narrative: 29-year-old female with chronic knee pain (chondromalacia) for many years who presents emergency department for evaluation of injury to her left knee. She states that she was playing around with her boyfriend when she accidentally twisted her left knee 2 days prior. She states she felt a popping sensation. Since that time she was had increased pain with standing, walking and bending her knee. She states that her left knee was initially swollen but the swelling is come down. She denied increased warmth to the knee. She denied fever, chills or fatigue. She states she has had similar pain in the past and has been evaluated by our orthopedic group. I did review the orthopedic office note from 05/11/2023. At that time she was diagnosed with chondromalacia of the right knee and right ankle sprain. Patient was treated with anti-inflammatory medications, rest, ice, [id number] knee brace and referred to physical therapy. Related Data Previous Rx's ?Medication ?Instructions ?Recorded cefuroxime axetil 250 mg tablet 250 mg PO BID 7 days #14 tabs 01/26/23 ondansetron 4 mg disintegrating 4 mg PO Q6-8H PRN nausea and 01/26/23 tablet vomiting #10 tabs ibuprofen 600 mg tablet 600 mg PO Q6H PRN pain #45 tabs 03/16/23 ibuprofen 800 mg tablet 800 mg PO Q8H PRN pain #20 tabs 03/28/23 diclofenac sodium 1 % topical gel 4 g topical QID 30 days #100 grams 05/11/23 cyclobenzaprine 10 mg tablet 10 mg PO TID PRN muscle spasm #10 07/10/24 tabs ibuprofen 600 mg tablet 600 mg PO Q8H PRN pain #14 tabs 07/10/24 lidocaine 5 % topical patch 1 patch topical DAILY #15 ea 07/10/24 Allergies Allergy/AdvReac Type Severity Reaction Status Date / Time Seasonal Allergies Allergy Runny Nose Verified 10/11/24 04:31 Review of Systems Review of Systems: Yes all other systems are reviewed and are negative [facility] Past Medical History [facility] Narrative: Social history: The patient denies tobacco and drug use. Patient does occasionally drink alcohol. The patient states she works in a [employer] and spends a significant amount of time on her feet, bending and lifting. 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 Physical Exam Vital Signs: Vital Signs: Last Vital Signs Temp 97.9 F 10/11/24 04:30 Pulse 87 10/11/24 04:30 Resp 18 10/11/24 04:30 BP 132/93 H 10/11/24 04:30 Pulse Ox 99 10/11/24 04:30 O2 Del Method Room Air 10/11/24 04:30 BMI result Body Mass Index 32.8 Vital signs did reveal an elevated blood pressure of 132/93 otherwise unremarkable Exam: General: Awake, alert, oriented to person place, pleasant, cooperative, weight 83.9 kg, elevated BMI 32.8 kg per m2 Lower extremity exam: Patient does have tenderness with palpation of her left patella with no obvious joint effusion she also has tenderness palpation of her medial collateral ligament on the left. She has increased pain with patella capture and with flexion of the knee. Right knee is normal. Patient has no increased warmth or erythema over the knees. Medical Decision Making Medical Decision Making MDM Narrative: 29-year-old female with chronic knee pain diagnosed with chondromalacia in the past by our orthopedic group who presents emergency department for evaluation of increased left knee pain after twisting her knee 2 days prior while playing around with her boyfriend. Patient has not been able to go to work secondary to pain and limited mobility. Patient's vital signs did reveal an elevated blood pressure otherwise unremarkable. Patient's left knee exam revealed no significant joint effusion, increased warmth or erythema. She does have increased pain with patella capture and with flexion of the left knee. Differential diagnosis: ?Includes but is not limited to left patella fracture, left tibial plateau fracture, chondromalacia, left knee sprain Course: Patient was x-rays revealed no acute fracture or other significant abnormalities. Patient's findings are consistent with knee sprain on top of her chronic knee pain. Patient was given ibuprofen 400 mg orally. She was advised to take ibuprofen 400 mg 3 times a day as needed for pain and Tylenol 1000 mg 3 times a day as needed for pain. She was given printed and verbal instructions on treating her knee pain. She was also given a you returned to work note with restrictions for 1 week. Admission/Observation Consideration of admission/observation: Escalation of care including admission/observation considered (No) Independent Interpretation I performed an independent interpretation of an: Plain X-Ray (Left knee x-rays) Interpretation: My interpretation patient's left knee x-ray is as follows: No acute fracture or joint effusion seen. Radiology Impression Discussion of test interpretation with radiology: I have reviewed the radiologist's reading. Radiologist Impression: 4 view left knee Comparison: CR/SR - XR KNEE LT 3V - 03/16/23 13:59 EDT Findings: Bones intact. No dislocations. No significant loss of joint space, osteophytes, or erosions. Possible small joint effusion. No radiopaque foreign body. IMPRESSION: 1. No acute fracture identified. Possible small joint effusion. This document has been electronically signed by: Sally Newton MD on 10/11/2024 05:23:08 Dictated By: Sally Newton MD Discharge Plan Discharge Clinical Impression: Left knee sprain Patient Disposition: Home, Self-Care Instructions: Knee Sprain (ED), Patellofemoral Pain Syndrome (ED) Additional Instructions: The x-ray of your knee did not reveal any broken bones or significant abnormalities. Your chronic knee pain pain may be related to a condition called chondromalacia which is breakdown of the cartilage behind the kneecap. Your recent injury to the knee may have caused a flare-up of this condition. Take ibuprofen 200 mg pills, 2 pills every 6 hours as needed for pain or fever. Take Tylenol (acetaminophen) 500 mg pills, 2 pills every 6 hours as needed for pain or fever. Apply ice for 15 minutes 4 to 6 times a day to your left knee to help reduce the pain and swelling. I am giving you a returned to work note with limited duty for 1 week. Follow-up with your doctor in 2 days. Please return to the emergency department if your symptoms get worse or if you develop any symptoms that are concerning to you. Prescriptions: No Action cefuroxime axetil 250 mg tablet 250 mg PO BID 7 Days Qty: 14 0RF ondansetron 4 mg tablet,disintegrating 4 mg PO Q6-8H PRN (Reason: nausea and vomiting) Qty: 10 0RF ibuprofen 600 mg tablet 600 mg PO Q6H PRN (Reason: pain) Qty: 45 0RF ibuprofen 800 mg tablet 800 mg PO Q8H PRN (Reason: pain) Qty: 20 0RF cyclobenzaprine 10 mg tablet 10 mg PO TID PRN (Reason: muscle spasm) Qty: 10 0RF ibuprofen 600 mg tablet 600 mg PO Q8H PRN (Reason: pain) Qty: 14 0RF lidocaine 5 % adhesive patch,medicated 1 patch topical DAILY Qty: 15 0RF Rx Instructions: leave on most painful area for up to 12 hrs diclofenac sodium 1 % gel 4 g topical QID 30 Days Qty: 100 6RF Rx Instructions: apply 4grams to affected area four times a day as needed Stand Alone Forms: Work/School Release Print Language: Estonian
[2024-10-11] MEDS: Ibuprofen 400 MG TABLET PO (05:16)
[2024-10-11 05:21] VITALS: BP 132/93; PULSE 87; RESP 18; TEMP 36.6; O2SAT 99
== END 2024-10-11 05:25 | disposition home or self-care (01) ==
PROVIDERS: Emergency Provider Emergency Medicine Emergency Medical Services
DX: S83.92XA Sprain of unspecified site of left knee, initial encounter (principal); M25.562 Pain in left knee; X50.1XXA Overexertion from prolonged static or awkward postures, initial encounter; Y93.9 Activity, unspecified; Y92.9 Unspecified place or not applicable; Y99.8 Other external cause status
CPT/HCPCS: 73564; 99283; 99284

== ENCOUNTER → 2024-10-11 04:45 | Outpatient (BNV) | payer OTHER, SELFPAY | PROVIDERS: Emergency Provider Emergency Medicine Emergency Medical Services; Visit Provider Radiology Diagnostic Radiology | DX: M25.562 Pain in left knee (principal) | CPT/HCPCS: 73564 ==

== ENCOUNTER 2024-11-30 15:29 | Emergency (ER) | payer OTHER, SELFPAY | END 2024-11-30 17:30 | disposition left against medical advice (07) | PROVIDERS: Emergency Provider Emergency Medicine | DX: R21 Rash and other nonspecific skin eruption (principal) ==

== ENCOUNTER 2025-02-15 05:19 | Emergency (ER) | payer OTHER, SELFPAY ==
--- NOTE | ~2025-02-15 | XR_ITS ---
CLINICAL HISTORY: pain, reocurrent patellar dislocation 2 view right knee Comparison: CR/SR - XR KNEE RT 4V - 06/07/23 19:03 EDT Findings: Bones intact. No dislocations. No significant arthritic change or erosions. No joint effusion. No radiopaque foreign body. IMPRESSION: 1. No acute findings. This document has been electronically signed by: Brandon Caceres MD on 02/15/2025 07:45:51
[2025-02-15 05:22] VITALS: BP 125/83; PULSE 76; RESP 16; TEMP 36.6; O2SAT 98; BMI 48.2
--- NOTE | 2025-02-15 05:53 | ED_ITS ---
HPI - Extremity Problem General Chief complaint: Extremity Problem Stated complaint: right knee pain Time Seen by Provider: 02/15/25 05:52 Source: patient Mode of arrival: ambulatory Limitations: no limitations History of Present Illness ED Provider: Dr. Jeni Castro HPI Narrative: Patient comes to the emergency room complaining of right-sided knee pain. Patient states that she has two bad knees, patient states that sometimes her patellas dislocate and pop back in place. Patient states that yesterday she fell because her right knee gave out. Patient states that she believes her pa tawannaa dislocated and popped back in place but is still hurting. Patient denies any other injuries. Patient states that she has not been seen by Orthopedics in several years. Related Data Previous Rx's ?Medication ?Instructions ?Recorded cefuroxime axetil 250 mg tablet 250 mg PO BID 7 days #14 tabs 01/26/23 ondansetron 4 mg disintegrating 4 mg PO Q6-8H PRN nausea and 01/26/23 tablet vomiting #10 tabs ibuprofen 600 mg tablet 600 mg PO Q6H PRN pain #45 tabs 03/16/23 ibuprofen 800 mg tablet 800 mg PO Q8H PRN pain #20 tabs 03/28/23 diclofenac sodium 1 % topical gel 4 g topical QID 30 days #100 grams 05/11/23 cyclobenzaprine 10 mg tablet 10 mg PO TID PRN muscle spasm #10 07/10/24 tabs ibuprofen 600 mg tablet 600 mg PO Q8H PRN pain #14 tabs 07/10/24 lidocaine 5 % topical patch 1 patch topical DAILY #15 ea 07/10/24 ibuprofen 600 mg tablet 600 mg PO Q8H PRN fever or pain 02/15/25 #30 tabs Allergies Allergy/AdvReac Type Severity Reaction Status Date / Time Seasonal Allergies Allergy Runny Nose Verified 02/15/25 05:23 Review of Systems Review of Systems: Constitutional : No Weight loss, No Fever, No Chills, No Night Sweats, No Fatigue, No Malaise ENT/Mouth : No Hearing loss, No Ear Pain, No Nasal Congestion, No Sinus Pain, No Hoarseness, No sore throat, No Rhinorrhea, No Swallowing Difficulty Eyes: No Eye Pain, No Swelling, No Redness, No Foreign Body, No Discharge, No Vision Changes Cardiovascular : No Chest Pain, No SOB, No Dyspnea on Exertion, No Orthopnea, No Edema, No Palpitations Respiratory : No Cough, No Sputum, No Wheezing, No Smoke Exposure, No Dyspnea Gastrointestinal : No Nausea, No Vomiting, No Diarrhea, No Constipation, No abdominal Pain, No Hematochezia, No Melena Genitourinary : no irregular bleeding, No Dysuria, No Urinary Frequency, No Hematuria, No Urinary Incontinence, No Urgency, No Flank Pain, No Urinary Flow Changes, No Hesitancy Musculoskeletal : Complaining of right-sided knee pain, No Myalgias, No Joint Swelling Skin : No Skin Lesions, No rash Neuro : No Weakness, No Numbness, No Paresthesias, No Loss of Consciousness, No Dizziness, No Headache Psych : No Anxiety/Panic, No Depression, No SI/HI/AH/VH, No Social Issues, Heme/Lymph: No Bruising, No Bleeding,No Lymphadenopathy Endocrine : No Polyuria, No Polydipsia, No Temperature Intolerance PMFSH Past Medical History Medical History Asthma Social History Social History Alcohol intake: current Alcohol intake frequency: a few times a week Smoked in Last 30 Days: No Use of substances other than those prescribed or required for medical reasons: No Advance Directives: No Advance Directives Information Provided: Yes Do you have a plan to hurt others: No Plan Patient : No Current occupational status: unemployed 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 Oriented X3. No acute distress. Eyes: Pupils equal, round and reactive to light. ENT: Pharynx normal. Neck: Normal inspection. Neck supple. No lymph nodes noted. No crepitus CVS: Normal heart rate and rhythm. Pulses normal. Normal S1 and S2 Respiratory: No respiratory distress. Breath sounds normal. No Wheezing. No rales Abdomen: Soft and nontender. No rigidity. No distention. Skin: Skin warm and dry. Normal skin color. Normal skin turgor. Extremities: No lower extremity edema. No Lacerations. No Rash. Patient is able to flex and extend both lower extremities at the knees. , patient has obvious knock knees (valgus) Neuro: Oriented X 3. No motor deficit. No sensory deficit. Moving all extremities. No slurred speech. CN 2 through 12 grossly intact Psych: calm, cooperative, normal affect Medications Administered Discontinued Medications Generic Name Dose Route Start Last Admin Trade Name Freq PRN Reason Stop Dose Admin Ibuprofen 600 mg 02/15/25 05:52 02/15/25 06:12 Ibuprofen 600 Mg Tablet PO 02/15/25 05:53 600 mg ONCE ONE Administration Medical Decision Making Medical Decision Making [facility] Narrative: My interpretation of x-ray: No acute abnormality. Patella is in place. Patient declined IM medication, patient was given p.o. Motrin Independent Interpretation I performed an independent interpretation of an: Plain X-Ray Discharge Plan Discharge Clinical Impression: Acute knee pain Patient Disposition: Home, Self-Care Instructions: Knee Pain (ED) Additional Instructions: Please follow-up with your primary care physician tomorrow. If you have any worsening or new symptoms, please return to the emergency room or call 911 Prescriptions: New ibuprofen 600 mg tablet 600 mg PO Q8H PRN (Reason: fever or pain) Qty: 30 0RF No Action cefuroxime axetil 250 mg tablet 250 mg PO BID 7 Days Qty: 14 0RF ondansetron 4 mg tablet,disintegrating 4 mg PO Q6-8H PRN (Reason: nausea and vomiting) Qty: 10 0RF ibuprofen 600 mg tablet 600 mg PO Q6H PRN (Reason: pain) Qty: 45 0RF ibuprofen 800 mg tablet 800 mg PO Q8H PRN (Reason: pain) Qty: 20 0RF cyclobenzaprine 10 mg tablet 10 mg PO TID PRN (Reason: muscle spasm) Qty: 10 0RF ibuprofen 600 mg tablet 600 mg PO Q8H PRN (Reason: pain) Qty: 14 0RF lidocaine 5 % adhesive patch,medicated 1 patch topical DAILY Qty: 15 0RF Rx Instructions: leave on most painful area for up to 12 hrs diclofenac sodium 1 % gel 4 g topical QID 30 Days Qty: 100 6RF Rx Instructions: apply 4grams to affected area four times a day as needed Referrals: Libertad Glaser PA-C [Physician Health Economist] - 02/19/25 (Per patient's recurrent patellar dislocations) Print Language: Solomon Islander
[2025-02-15] MEDS: Ibuprofen 600 MG TABLET PO (06:12)
[2025-02-15 07:07] VITALS: BP 136/82; PULSE 86; RESP 18; TEMP 36.8; O2SAT 97
== END 2025-02-15 07:10 | disposition home or self-care (01) ==
PROVIDERS: Emergency Provider Emergency Medicine
DX: M25.561 Pain in right knee (principal)
CPT/HCPCS: 73560; 99283; 99284

== ENCOUNTER → 2025-02-15 05:48 | Outpatient (BNV) | payer OTHER, SELFPAY | PROVIDERS: Emergency Provider Emergency Medicine; Visit Provider Radiology Diagnostic Radiology | DX: M25.562 Pain in left knee (principal) | CPT/HCPCS: 73560 ==

== ENCOUNTER 2025-03-01 08:27 | Outpatient (REF) | payer SELFPAY ==
--- NOTE | ~2025-03-01 | XR_ITS ---
CLINICAL HISTORY: M17.11 - Unilateral primary osteoarthritis, right knee Two views of the right knee. AP views of the bilateral knees. Weight bearing views were obtained. COMPARISON: XR right knee dated 02/15/25 at 05:56 EDT FINDINGS: Right knee: No suprapatellar joint effusion. Joint spaces are maintained. Visualized portions of the distal right femur, patella, and proximal tibia and fibula appear intact. Limited AP view of the left knee: Joint spaces are maintained. Visualized portions of the distal left femur and proximal tibia and fibula appear intact. IMPRESSION: 1. No radiographic evidence of acute injury to the right knee. This document has been electronically signed by: Hakan Hernandez MD on 03/01/2025 14:36:08
== END 2025-03-01 08:28 | disposition home or self-care (01) ==
LOC: HO.HOSX 08:27
PROVIDERS: Visit Provider Physician Assistant
DX: M17.11 Unilateral primary osteoarthritis, right knee (principal); M94.269 Chondromalacia, unspecified knee
CPT/HCPCS: 73562; 99212

== ENCOUNTER 2025-03-01 09:39 | Outpatient (AMB) | payer SELFPAY ==
[2025-03-01 09:59] VITALS: BMI 48.1
--- NOTE | 2025-03-01 09:59 | MHC.OFFVIS ---
Vital Signs 03/01/25 09:59 Height 5 ft 2 in Weight 263 lb BMI 48.1 Intake Visit Reasons: OV-Rt Knee Pain Intake Note: Sheri is a 29 year old female who presents for a follow up of right knee pain. Patient was seen on 05/11/23 status post fall on 03/27/23. Today patient reports pain in both of her knees with her right knee being the worse. Her pain is located inside her knee and fluctuates in intensity. States her pain increases with prolong standing or walking. She presented to [facility] due to her knee pain and was prescribed ibuprofen that does not provide her with relief. Her knees give out at times and she feels cracking in her knees. States a tingling sensation in her knees with prolong standing. No other treatment. She has missed work due to her pain making it difficult to walk at times. Allergies Seasonal Allergies Allergy (Verified 02/15/25 05:23) Runny Nose Medication List - Last Reconciled 03/01/25 by LETITIA Lubin-Shruti ibuprofen 600 mg PO Q8H PRN HPI HPI OV-Rt Knee Pain: Details: 29-year-old female returns to the office today for right knee pain. She was seen by me in the past for her knee and was prescribed physical therapy but states she did not attend. She has pain with prolonged standing and stair climbing. She also complains of pain when she is in bed and she goes to straighten the leg. She states most of her pain is anteriorly however it does radiate to the medial side. 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 Review of Systems Const All systems reviewed & are unremarkable except as noted in HPI and below Physical Exam Vital Signs: BMI result Body Mass Index 48.1 Const General: cooperative, healthy appearing, comfortable, no acute distress, well developed and alert Orientation/consciousness: patient oriented x3 HEENT Head: Yes normal to inspection, Yes normocephalic and Yes atraumatic Eyes General: appearance normal, both eyes and all related structures Resp Effort & Inspection: normal respiratory effort and able to speak in complete sentences Cardio Rate: regular rate Peripheral pulses: Peripheral pulses 2+ throughout GI Palpation (GI): Soft to palpation Skin Lesions: no lesions Rashes: no rashes Neuro General: patient oriented x3 Extrem Other: Right knee: Skin intact, no erythema or joint effusion. Full ROM with crepitus. +J sign .Negative Ann?s. No ligamentous laxity. NVI. Results Reviewed Results Reviewed: X-rays of her right knee obtained in the office today and reviewed by me show varus deformity with medial joint space narrowing and lateralization of the patella. Assessment & Plan Assessment & Plan (1) Chondromalacia, right knee: Code(s): M94.261 - Chondromalacia, right knee Category: Medical Plan I stressed the importance of working with physical therapy to work on her gait mechanics and strengthening exercises. I also encouraged her to modify activities as tolerated. I did explain the forces distributed through the lower extremity such as going downstairs can be up to 3 times her body weight. The patient would also benefit from a stabilizing knee brace to help with her lateralized patella and reduce risk for subluxation. We will have her fit for these. She will contact me if there is any concerns otherwise follow up as needed. Orders: Orders XR knee RT 3V Today M17.11 - Unilateral primary osteoarthritis, right knee PT Evaluation and Treatment Today M94.261 - Chondromalacia, right knee Coding Level of Care Code Est Pt Level 3 (49010) Complex EM visit Add On G2211 Diagnoses Chondromalacia, right knee M94.261
== END 2025-03-01 10:48 | disposition home or self-care (01) ==
LOC: HO.HOS 09:40
PROVIDERS: Visit Provider Physician Assistant
DX: M94.261 Chondromalacia, right knee (principal)
CPT/HCPCS: 99213; G2211

== ENCOUNTER → 2025-03-01 09:46 | Outpatient (BNV) | payer SELFPAY | PROVIDERS: Visit Provider Radiology Diagnostic Radiology | DX: M17.11 Unilateral primary osteoarthritis, right knee (principal) | CPT/HCPCS: 73562 ==

== ENCOUNTER 2025-04-24 14:00 | Outpatient (RCR) | payer OTHER, SELFPAY ==
--- NOTE | 2025-04-16 09:40 | MHC.PT.EP ---
[facility] [place] Office [place] Office [place] Office [address] Rylan Powell [address] [phone] F: [phone] F: [phone] F: [phone] F: [phone] Physical Therapy Plan of Care Date of Evaluation: 04/16/25 Date of Surgery: n/a Diagnosis: chondromalacia, R knee Assessment: Patient is a 29 year old female presenting to PT with complaints of pain in her R knee. Pt reports onset of pain began at age 18 due to insidious onset. She presents today with impairments in pain, knee ROM, hip strength, knee strength. 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 Pt expresses detention goal of reducing pain, and is motivated to work towards this in PT. Clinical presentation today is most consistent with signs and sx associated with R knee pain and pt will benefit from skilled PT 2 week x 4 weeks to address the following problems and impairments noted upon evaluation: pain, knee ROM, hip strength, knee strength. These problems limit the patient with the following functional activities: ambulating, standing, stair negotiation, work, ADLs. The prescribed treatment plan of care is medically necessary. Co-morbidities of none were identified and taken into considerations of plan of care. Pt was educated on HEP, role of PT, prognosis, POC. Frequency and Duration: The patient will be seen 2 x week x 4 weeks Short Term Goals: Pt will demonstrate improved knee flexion by 10 degrees B in 2 weeks. Pt will demonstrate improved hip MMT B strength by 1/3 grade in 2 weeks. Pt will demonstrate improved knee MMT strength B by 1/3 grade in 2 weeks. Technology Internship Goals: Pt will demonstrate improved LEFI score by 9 points in 4 weeks for improved functional mobility. Pt will demonstrate ability to ambulate with min to no pain in 4 weeks for improved functional mobility. Pt will demonstrate ability to negotiate stairs with min to no pain in 4 weeks for return to PLOF. Treatment Plan: Modalities to reduce pain, spasms and effusion. Manual therapy to restore motion and function. Therapeutic exercise to improve strength and flexibility. Neuromuscular re-education for posture and balance. Therapeutic activities to return to functional activities of daily living. Electronically signed by: Joyce Bernal, PT, DPT, ATC Please sign and return to therapist. Thank you for your referral.
--- NOTE | 2025-05-25 06:39 | MHC.PT.DC ---
[facility] [place] Office [place] Office [place] Office [address] [phone] F: [phone] F: [phone] F: [phone] F: [phone] Physical Therapy Discharge Report Diagnosis: chondromalacia, R knee Date of Surgery: n/a Date of Evaluation: 04/16/25 Date of Discharge: 05/25/25 Treatments to Date: 2 Cancellations to Date: 3 No Shows to Date: 1 Discharge Status: Patient Elected to Stop Visit Non-compliance Discharge Summary: Pt cancelled and no showed her last few appointments. She has not returned in > 30 days therefore to be d/c per policy. Electronically signed by: Joyce Bernal, PT, DPT, ATC Please sign and return to therapist. Thank you for your referral.
== END 2025-05-25 06:39 | disposition home or self-care (01) ==
LOC: HO.PTCHIC 14:00
PROVIDERS: Visit Provider Physician Assistant
DX: M94.261 Chondromalacia, right knee (principal)
CPT/HCPCS: 97110; 97161

== ENCOUNTER 2025-08-06 06:23 | Emergency (ER) | payer MEDICAID, SELFPAY ==
--- OUTSIDE RECORDS SUMMARY | 2025-08-04 23:59 | XMS_ITS | Continuity of Care Document ---
Author Organization [facility] [facility] Address [address] [place] [address]- Care Team Providers Care Radio Electronics Technician Name Role Phone Ventura SALAZAR, Russ Primary Care Physician [phone] Encounter [facility] [id number] Date(s): 04/16/25 - 08/04/25 [facility] [address] [place], [place] [id number] Attending Physician: Carter Forde MD Referring Physician: Kelle Delarosa Encounter Type: Pre Office Visit Allergies, Adverse Reactions, Alerts Substance Criticality Severity Reaction Reaction Severity Status Other Environmental Allergy Active Immunizations Given and Recorded Vaccine Date Status Refusal Reason influenza virus vaccine, inactivated 1 10/11/18 Gi ana influenza virus vaccine, inactivated 11/17/17 Give n pneumococcal 23-valent vaccine 2 11/17/17 Given tetanus/diphtheria/pertussis, acel(Tdap) 11/16/17 Given Measles/Mumps/Rubella Virus Vaccine 09/23/01 Given Measles/Mumps/Rubella Virus Vaccine 09/18/98 Given diphtheria/tetanus/pertussis, acel(DTaP) 09/23/01 Given diphtheria/tetanus/pertussis, acel(DTaP) 01/30/99 Given diphtheria/tetanus/pertussis, acel(DTaP) 07/30/98 Given diphtheria/tetanus/pertussis, acel(DTaP) 05/01/98 Given diphtheria/tetanus/pertussis, acel(DTaP) 97 Given Poliovirus Vaccine, Inactivated 09/23/01 Given Poliovirus Vaccine, Inactivated 11/22/98 Given Poliovirus Vaccine, Inactivated 05/01/98 Given Poliovirus Vaccine, Inactivated 97 Given Varicella Virus Vaccine 01/30/99 Given Haemophilus B Conj Vaccine (oldterm) 01/30/99 Give n Haemophilus B Conj Vaccine (oldterm) 07/30/98 Give n Haemophilus B Conj Vaccine (oldterm) 05/01/98 Give n Haemophilus B Conj Vaccine (oldterm) 97 Give n Hepatitis B Vaccine (old term) 05/01/98 Given Hepatitis B Vaccine (old term) 97 Given Hepatitis B Vaccine (old term) 97 Given 1Result Comment: [10/11/2018] pt tolerated injection well.VIS given to patient. 2Result Comment: Patient wanted injection in same arm as flu shot. Placed Mid arm and Flu was upper arm Medications amitriptyline 25 mg oral tablet See Instructions, TAKE 1/2 TABLET BY MOUTH FOR 1 WEEK THEN 1 FULL TABLET THEREAFTER, # 90 tablet, Refills 1, Maintenance, 08/20/23 8:14:00 AM EST, Instructions Replace Required Details, Route to Pharmacy Electronically, [id number], 160, cm, 06/24/23 14:09:00 EDT, Height, 128, kg, 04/30/23 15:44:00 EDT, Dry Weight Start Date: 08/20/23 Status: Ordered Medication Dispense Status: Completed Quantity: 90.0 Unit: tablet Total Allowed Fills: 1 Fills Dispensed: 0 capsaicin 0.025% topical cream 1 application, Topically, 3 times a day, # 45 Gm, 3 Refills, Maintenance, 06/03/21 3:37:00 PM EDT, Cream, [facility]/pharmacy #[id number], Partial fill upon patient request if the prescription is for a schedule II opioid drug., 1 application Topically 3 times a day, 160, cm, 06/03/21 14:57:00 EDT, Height, 105.8, kg, 08/28/19 9:25:00 EST, Dry Weight Start Date: 06/03/21 Status: Ordered Medication Dispense Status: Completed Quantity: 45.0 Unit: g Total Allowed Fills: 4 Fills Dispensed: 0 diclofenac 1% topical gel 1 application, Topically, 4 times a day, 4g per application on knee, # 100 Gm, 1 Refills, Maintenance, 04/01/23 4:52:00 PM EDT, Gel, [facility]/pharmacy #[id number], Partial fill upon patient request if the prescription is for a schedule II opioid drug., 160, cm, 04/01/23 14:14:00 EDT, Height Start Date: 04/01/23 Status: Ordered Medication Dispense Status: Completed Quantity: 100.0 Unit: g Total Allowed Fills: 2 Fills Dispensed: 0 famotidine 20 mg oral tablet 1, tablet, By Mouth, Daily, # 30 tablet, Refills 2, Maintenance, 06/18/23 9:38:00 AM EDT, Route to Pharmacy Electronically, [facility] ST[id number], 160, cm, 05/20/23 14:58:00 EDT, Height, 128, kg, 04/30/23 15:44:00 EDT, Dry Weight Start Date: 06/18/23 Status: Ordered Medication Dispense Status: Completed Quantity: 30.0 Unit: tablet Total Allowed Fills: 1 Fills Dispensed: 0 FLUoxetine 20 mg oral capsule 1, capsule, By Mouth, Daily, # 90 capsule, Refills 1, Maintenance, 08/17/23 6:30:00 PM EST, Route to Pharmacy Electronically, [id number], 160, cm, 06/24/23 14:09:00 EDT, Height, 128, kg, 04/30/23 15:44:00 EDT, Dry Weight Start Date: 08/17/23 Status: Ordered Medication Dispense Status: Completed Quantity: 90.0 Unit: capsule Total Allowed Fills: 1 Fills Dispensed: 0 hydrOXYzine hydrochloride 25 mg oral tablet 1 tablet = 25 mg, By Mouth, 4 times a day, PRN for anxiety, # 60 tablet, 3 Refills, Maintenance, 02/08/23 8:48:00 AM EDT, Tablet, [facility]/pharmacy #[id number], 160, cm, 02/08/23 8:37:00 EDT, Height Start Date: 02/08/23 Stop Date: 06/08/23 Status: Ordered Medication Dispense Status: Completed Quantity: 60.0 Unit: tablet Total Allowed Fills: 4 Fills Dispensed: 0 ibuprofen 600 mg oral tablet 600 mg, 1, tablet, By Mouth, Every 6 hours, PRN, not to exceed 3200 mg/day. with food or milk, # 40tablet, Refills 0, Tot. Refills 0, Acute 08/09/25 5:29:00 PM EST, Pain , Mild for pain, 08/08/24 5:29:00 PM EST, Route to Pharmacy Electronically, [facility]/pharmacy #[id number], Partial fill upon patient request if the prescription is for a schedule II opioid drug., 160, cm, 06/24/23 14:09:00 EDT, Height, 128, kg, 04/30/23 15:44:00 EDT, Dry Weight Start Date: 08/08/24 Stop Date: 08/09/25 Status: Ordered Medication Dispense Status: Completed Quantity: 40.0 Unit: tablet Total Allowed Fills: 1 Fills Dispensed: 0 lidocaine 5% topical ointment 1 application, Topically, 3 times a day, PRN Pain , Moderate, # 50 Gm, 0 Refills, Maintenance, 06/03/21 3:37:00 PM EDT, Ointment, [facility]/pharmacy #[id number], Partial fill upon patient request if the prescription is for a schedule II opioid drug., 1 application Topically 3 times a day,PRN:Pain , Moderate, 160, cm, 06/03/21 14:57:00 EDT, Height, 105.8, kg, 08/28/19 9:25:00 EST, Dry Weight Start Date: 06/03/21 Status: Ordered Medication Dispense Status: Completed Quantity: 50.0 Unit: g Total Allowed Fills: 1 Fills Dispensed: 0 prazosin 1 mg oral capsule 2 mg, 2, capsule, By Mouth, Daily at bedtime, dose increased to 2mg daily on 06/21, # 60 capsule, Refills 1, Tot. Refills 1, Maintenance, 06/21/23 4:05:00 PM EDT, Route to Pharmacy Electronically, [facility]/pharmacy #[id number], Partial fill upon patient request if the prescription is for a schedule II opioid drug., 160, cm, 06/21/23 14:35:00 EDT, Height, 128, kg, 04/30/23 15:44:00 EDT, Dry Weight Start Date: 06/21/23 Status: Ordered Medication Dispense Status: Completed Quantity: 60.0 Unit: capsule Total Allowed Fills: 2 Fills Dispensed: 0 SUMAtriptan 25 mg oral tablet 1 tablet, By Mouth, Daily, PRN NEEDED FOR MIGRAINE HEADACHE (MAY REPEAT DOSE AFTER 2 HOURS UP TOMAX OF 2 USE UP TO 9 TIMES PER MONTH), # 18 tablet, 12 Refills, Maintenance, 04/15/23 1:09:00 PM EDT, [id number], 160, cm, 04/01/23 14:14:00 EDT, Height Start Date: 04/15/23 Status: Ordered Medication Dispense Status: Completed Quantity: 18.0 Unit: tablet Total Allowed Fills: 1 Fills Dispensed: 0 Problem List Condition Confirmation Course Effective Dates Status Health St atus Informant Acne Confirmed 05/26/13 Active Anxiety and depression Confirmed Active Asthma Confirmed 05/26/13 Active Bipolar I disorder BUT NOT per one-timepsycahitry consutl , they foudn depression, PTSD Confirmed 01/29/15 Active Infection caused by Helicobacter pylori Confirmed 01/20/16 Active Insomnia Confirmed 05/26/13 Active Migraine Confirmed 05/26/13 Active Obesity Confirmed 01/29/15 Active Passive smoker Confirmed 05/26/13 Active Health retirement, active care coordination Confirmed Active *Sadie Gomes Circuitry Negative Inspector [facility] [phone] Confirmed Active PTSD (post-traumatic stress disorder) Confirmed Active Allergy, seasonal Confirmed 05/26/13 Active Severe obesity Confirmed Active Social History Social History Type Response Smoking Status Never (less than 100 in lifetime) entered on: 10/11/18 Sexual Orientation Self described orien tation: ; Straight or heterosexual Sex Sex Representation Female (finding) Patient Care team information Care Team Personnel Name: Russ Whitehead MD Position: [facility] Resident Member Role: PCP Address: [address] [place] [address] Telecom: Name: Salome Rosario RN Position: [facility] [employer] Employee Member Role: Primary Care Nurse Care Team Related Persons Name: SONI DAWSON Name: CARLOS DAWSON Name: PATIENT STATES, NOONE Insurance Providers Guarantor name: ALYSSA DAWSON Health Plan Information #: 1 Payer: SELF PAY Payer Identifier: NA Member Number: NA Group Number: NA Subscriber Identifier: NA Relationship to Subscriber: self Coverage Type: Self-pay (Includes applicants for insurance and Medicaid applicants) Coverage Verification Date: NA Telecom: JURGEN Address: NA
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
[2025-08-06 06:30] VITALS: BP 189/93; PULSE 90; RESP 18; TEMP 36.7; O2SAT 99; BMI 46.5
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
[2025-08-06 10:54] VITALS: BP 150/111; PULSE 87; RESP 18; O2SAT 98
[2025-08-06 11:08] VITALS: BP 150/111; PULSE 87; RESP 18; TEMP 36.7; O2SAT 98
== END 2025-08-06 11:08 | disposition home or self-care (01) ==
PROVIDERS: Physician Assistant Medical; Emergency Provider Emergency Medicine
DX: R07.89 Other chest pain (principal); M54.2 Cervicalgia; Y04.0XXA Assault by unarmed brawl or fight, initial encounter; Y93.89 Activity, other specified; Y92.098 Other place in other non-institutional residence as the place of occurrence of the external cause; Y99.8 Other external cause status
CPT/HCPCS: 36415; 70450; 71101; 72125; 73502; 84702; 96372; 99283; 99284; J1885

== ENCOUNTER → 2025-08-06 07:34 | Outpatient (BNV) | payer MEDICAID, SELFPAY | PROVIDERS: Emergency Provider Emergency Medicine; Visit Provider Radiology Diagnostic Radiology | DX: M25.552 Pain in left hip (principal); Z04.3 Encounter for examination and observation following other accident | CPT/HCPCS: 70450; 71101; 72125; 73502 ==